=== PATIENT | female | born 1935 | race Caucasian/White ===

== ENCOUNTER → 2017-08-06 | Outpatient (CLI) | payer MEDICARE | END | disposition home or self-care (01) | LOC: KCIC US 08:24 | DX: I70.202 Unspecified atherosclerosis of native arteries of extremities, left leg (principal) | CPT/HCPCS: 93925 ==

== ENCOUNTER 2018-07-02 09:30 | Inpatient (IN) | payer MEDICARE, BC ==
[~2018-07-02] VITALS: Ht 165.1 cm; Wt 72.6 kg
[~2018-07-02 09:30] MED LIST: ASPI1CPM PO; DIGO125T PO; IRBE300T3 PO; LANS30CA66 PO
[2018-07-02 10:39] LABS: BASO % 1 % (0-3); EOS # 0.1 x10^3/uL (0.0-0.7); EOS % 1 % (0-3); HEMOGLOBIN 13.2 g/dL (12.0-15.5); LYMPH # 1.2 x10^3/uL (1.0-4.8); LYMPH % 19 % (24-48); MEAN CORPUSCULAR HEMOGLOBIN 30 pg (25-35); MEAN CORPUSCULAR HGB CONC 33 g/dL (31-37); MEAN CORPUSCULAR VOLUME 92 fL (79-100); MONO # 0.3 x10^3/uL (0.0-1.1); MONO % 4 % (0-9); NEUT # 4.8 x10^3uL (1.8-7.7); NEUT % 76 % (31-73); PLATELET COUNT 266 x10^3/uL (140-400); RED BLOOD COUNT 4.33 x10^6/uL (3.50-5.40); RED CELL DISTRIBUTION WIDTH 13.3 % (11.5-14.5); WHITE BLOOD COUNT 6.3 x10^3/uL (4.0-11.0)
[2018-07-02 10:42] LABS: CALCIUM 9.1 mg/dL (8.5-10.1); CREATININE 0.8 mg/dL (0.6-1.0); GFR 68.3; POTASSIUM 4.2 mmol/L (3.5-5.1)
[2018-07-02 10:48] LABS: ALBUMIN 3.4 g/dL (3.4-5.0); TOTAL BILIRUBIN 0.3 mg/dL (0.2-1.0); TOTAL PROTEIN 6.8 g/dL (6.4-8.2)
--- NOTE | 2018-07-02 11:15 | RAD ---
RS Compliance Statement: One or more of the following individualized dose reduction techniques were utilized for this examination: 1. Automated exposure control 2. Adjustment of the mA and/or kV according to patient size 3. Use of iterative reconstruction technique CT head without contrast 07/02/2018 10:23 AM INDICATION: Right arm weakness with history of stroke. COMPARISON: CT head July 24, 2014 TECHNIQUE: Multiple axial CT images of the head were obtained from skull base through the vertex without intravenous contrast. FINDINGS: Head: Ventricles, sulci and basal cisterns are mildly prominent compatible with mild joint cerebral volume loss. Focal fat is identified along the midline falx. Low-attenuation in the periventricular white matter is suggestive of chronic small vessel ischemic changes. There is a remote lacunar infarct in the left thalamus. There is no hydrocephalus. Clifford-white matter differentiation is normal. There is no acute intracranial hemorrhage. There is no mass, mass effect or midline shift. Posterior fossa is normal in appearance. Visualized portions of the orbits are normal. Paranasal sinuses are well aerated. Mastoid air cells are well aerated. Scalp and calvaria are normal. IMPRESSION: No acute intracranial hemorrhage. Mild generalized cerebral volume loss. Low-attenuation in the periventricular white matter is suggestive of chronic small vessel ischemic changes. Remote lacunar infarct in left thalamus. Electronically signed by: Heike Chen MD (07/02/2018 11:11 AM) [facility]
--- NOTE | 2018-07-02 11:28 | PHYS DOC ---
Past Medical History Past Medical History: CVA, GERD, Hypertension, Stroke Past Surgical History: No Surgical History Alcohol Use: None Drug Use: None Adult General Chief Complaint Chief Complaint: NEURO SYMPTOMS/DEFICITS HPI HPI 82-year-old female with a history of previous CVA with some residual right- sided weakness presents with new right-sided weakness. She states she woke up yesterday not feeling well. Today she states she noted that she's had some weakness in her right arm and difficulty determining how far her right foot was moving when she walked. She denies any headache. She denies any speech or vision problems. She has not any fever chills or sweats. She denies any nausea or vomiting. She states she is taking all of her medicines including Aggrenox as directed. She denies any chest pain palpitations, shortness of breath or dyspnea on exertion.[] Review of Systems Review of Systems Constitutional: Denies fever or chills [] Eyes: Denies change in visual acuity, redness, or eye pain [] HENT: Denies nasal congestion or sore throat [] Respiratory: Denies cough or shortness of breath [] Cardiovascular: No additional information not addressed in HPI [] GI: Denies abdominal pain, nausea, vomiting, bloody stools or diarrhea [] : Denies dysuria or hematuria [] Musculoskeletal: Denies back pain or joint pain [] Integument: Denies rash or skin lesions [] Neurologic: Per history of present illness[] Endocrine: Denies polyuria or polydipsia [] All other systems were reviewed and found to be within normal limits, except as documented in this note. Current Medications Current Medications Current Medications Medications (Trade) Dose Ordered Sig/Magali Start Time Stop Time Status Last Admin Dose Admin Ondansetron HCl (Zofran) 4 mg PRN Q8HRS PRN 07/02/18 12:15 07/03/18 12:14 Allergies Allergies Allergies Coded Allergies Type Severity Reaction Last Updated Verified Penicillins Allergy Intermediate 07/27/14 No Physical Exam Physical Exam Constitutional: Well developed, well nourished, no acute distress, non-toxic appearance. [] HENT: Normocephalic, atraumatic, bilateral external ears normal, oropharynx moist, no oral exudates, nose normal. [] Eyes: PERRLA, EOMI, conjunctiva normal, no discharge. [] Neck: Normal range of motion, no tenderness, supple, no stridor. [] Cardiovascular:Heart rate regular rhythm, no murmur [] Lungs & Thorax: Bilateral breath sounds clear to auscultation [] Abdomen: Bowel sounds normal, soft, no tenderness, no masses, no pulsatile masses. [] Skin: Warm, dry, no erythema, no rash. [] Back: No tenderness, no CVA tenderness. [] Extremities: No tenderness, no cyanosis, no clubbing, ROM intact, no edema. [] Neurologic: Alert and oriented 3, she has some decreased retort forker on the right and weakness in the right lower extremity is very minimal. [] Psychologic: Affect normal, judgement normal, mood normal. [] Current Patient Data Vital Signs Vital Signs Date Time Temp Pulse Resp B/P (MAP) Pulse Ox O2 Delivery O2 Flow Rate FiO2 07/02/18 09:52 98.6 58 18 207/88 (127) 98 98.6 Lab Values Laboratory Tests Test 07/02/18 10:20 07/02/18 10:58 07/02/18 11:15 White Blood Count 6.3 x10^3/uL (4.0-11.0) Red Blood Count 4.33 x10^6/uL (3.50-5.40) Hemoglobin 13.2 g/dL (12.0-15.5) Hematocrit 40.0 % (36.0-47.0) Mean Corpuscular Volume 92 fL (79-100) Mean Corpuscular Hemoglobin 30 pg (25-35) Mean Corpuscular Hemoglobin Concent 33 g/dL (31-37) Red Cell Distribution Width 13.3 % (11.5-14.5) Platelet Count 266 x10^3/uL (140-400) Neutrophils (%) (Auto) 76 % (31-73) H Lymphocytes (%) (Auto) 19 % (24-48) L Monocytes (%) (Auto) 4 % (0-9) Eosinophils (%) (Auto) 1 % (0-3) Basophils (%) (Auto) 1 % (0-3) Neutrophils # (Auto) 4.8 x10^3uL (1.8-7.7) Lymphocytes # (Auto) 1.2 x10^3/uL (1.0-4.8) Monocytes # (Auto) 0.3 x10^3/uL (0.0-1.1) Eosinophils # (Auto) 0.1 x10^3/uL (0.0-0.7) Basophils # (Auto) 0.0 x10^3/uL (0.0-0.2) Sodium Level 143 mmol/L (136-145) Potassium Level 4.2 mmol/L (3.5-5.1) Chloride Level 105 mmol/L (98-107) Carbon Dioxide Level 29 mmol/L (21-32) Anion Gap 9 (6-14) Blood Urea Nitrogen 12 mg/dL (7-20) Creatinine 0.8 mg/dL (0.6-1.0) Estimated GFR (Cockcroft-Gault) 68.3 BUN/Creatinine Ratio 15 (6-20) Glucose Level 110 mg/dL (70-99) H Calcium Level 9.1 mg/dL (8.5-10.1) Total Bilirubin 0.3 mg/dL (0.2-1.0) Aspartate Amino Transferase (AST) 15 U/L (15-37) Alanine Aminotransferase (ALT) 14 U/L (14-59) Alkaline Phosphatase 105 U/L (46-116) Total Protein 6.8 g/dL (6.4-8.2) Albumin 3.4 g/dL (3.4-5.0) Albumin/Globulin Ratio 1.0 (1.0-1.7) Prothrombin Time 13.0 SEC (11.7-14.0) Prothrombin Time INR 1.0 (0.8-1.1) Urine Collection Type Clean catch Urine Color Yellow Urine Clarity Clear Urine pH 6.5 Urine Specific [place] <=1.005 Urine Protein Negative mg/dL (NEG-TRACE) Urine Glucose (UA) Negative mg/dL (NEG) Urine Ketones (Stick) Negative mg/dL (NEG) Urine Blood Negative (NEG) Urine Nitrite Negative (NEG) Urine Bilirubin Negative (NEG) Urine Urobilinogen Dipstick 0.2 mg/dL (0.2 mg/dL) Urine Leukocyte Esterase Trace (NEG) Urine RBC Occ /HPF (0-2) Urine WBC 1-4 /HPF (0-4) Urine Squamous Epithelial Cells Mod /LPF Urine Bacteria Many /HPF (0-FEW) Urine Mucus Mod /LPF Laboratory Tests 3/27/19 10:20 Laboratory Tests 07/02/18 10:20 EKG EKG EKG: Sinus bradycardia with PAC right bundle rate of 50 utilization review coordinator appears more consistent with atrial fibrillation[] Radiology/Procedures Radiology/Procedures [] Impressions: REASON: right arm weakness PROCEDURE: CT HEAD WO CONTRAST PQRS Compliance Statement: One or more of the following individualized dose reduction techniques were utilized for this examination: 1. Automated exposure control 2. Adjustment of the mA and/or kV according to patient size 3. Use of iterative reconstruction technique CT head without contrast 07/02/2018 10:23 AM INDICATION: Right arm weakness with history of stroke. COMPARISON: CT head July 24, 2014 TECHNIQUE: Multiple axial CT images of the head were obtained from skull base through the vertex without intravenous contrast. FINDINGS: Head: Ventricles, sulci and basal cisterns are mildly prominent compatible with mild joint cerebral volume loss. Focal fat is identified along the midline falx. Low-attenuation in the periventricular white matter is suggestive of chronic small vessel ischemic changes. There is a remote lacunar infarct in the left thalamus. There is no hydrocephalus. Clifford-white matter differentiation is normal. There is no acute intracranial hemorrhage. There is no mass, mass effect or midline shift. Posterior fossa is normal in appearance. Visualized portions of the orbits are normal. Paranasal sinuses are well aerated. Mastoid air cells are well aerated. Scalp and calvaria are normal. IMPRESSION: No acute intracranial hemorrhage. Mild generalized cerebral volume loss. Low-attenuation in the periventricular white matter is suggestive of chronic small vessel ischemic changes. Remote lacunar infarct in left thalamus. Course & Med Decision Making Course & Med Decision Making Pertinent Labs and Imaging studies reviewed. (See chart for details) [ED course: Evaluation reveals 82-year-old female who started having symptoms 24 hours ago. It sounds like they've waxed and waned throughout the day. This morning they may have been a little bit worse. Certainly, it does not appear that she's had an acute CVA within the last 4 hours. Her symptoms are more consistent with TIA. She is not a candidate for TPA at this time] Dragon Disclaimer Dragon Disclaimer This electronic medical record was generated, in whole or in part, using a voice recognition dictation system. Departure Departure Impression: Primary Impression: CVA (cerebral vascular accident) Disposition: 01 HOME, SELF-CARE Admitting Physician: Yanira Martini Condition: STABLE Referrals: YANIRA MARTINI MD (PCP) Problem Qualifiers Primary Impression: CVA (cerebral vascular accident) CVA mechanism: unspecified Qualified Codes: I63.9 - Cerebral infarction, unspecified HAMILTON LUONG DO Jul 02, 2018 11:28
[2018-07-02 11:30] LABS: BILIRUBIN,URINE NEGATIVE (NEG); CLARITY,URINE CLEAR; COLOR,URINE YELLOW; NITRITE,URINE NEGATIVE (NEG); PH,URINE 6.5; PROTEIN,URINE NEGATIVE (NEG-TRACE); UROBILINOGEN,URINE 0.2 mg/dL (0.2 mg/dL)
--- NOTE | 2018-07-02 11:44 | EKG ---
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
[2018-07-02 11:46] LABS: SQUAMOUS EPITHELIAL CELL,UR MOD /LPF
[2018-07-02 11:47] LABS: BACTERIA,URINE MANY /HPF (0-FEW); RBC,URINE OCC /HPF (0-2)
[2018-07-02] MEDS ORDERED: ONDANSETRON PF 4 MG/2 ML VIAL. IV PRN (12:15)
[2018-07-02 14:00] VITALS: BP 127/67
--- NOTE | 2018-07-02 14:44 | NUR ---
This RN interpreted telemetry strip printed at 1444 as 2nd degree AV block type one, received orders for cardiology consult and 12 lead EKG. Spoke with PABLO Rdz, who stated that the patient was in a junctional rhythm, but will get an Echo to r/o heart disease and a digoxin level. Pt is asymptomatic. Will continue to monitor.
--- NOTE | 2018-07-02 15:08 | EKG ---
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
[2018-07-02] MEDS: LOSARTAN POTASSIUM 50 MG TABLET. PO SCH (15:11)
--- NOTE | 2018-07-02 15:33 | PDOC2 ---
CARDIAC CONSULT DATE OF CONSULT Date of Consult DATE: 07/02/18 TIME: 15:19 REASON FOR CONSULT Reason for Consult: SB vs AFIB REFERRING PHYSICIAN Referring Physician: Appl SOURCE Source: Chart review, Patient HISTORY OF PRESENT ILLNESS HISTORY OF PRESENT ILLNESS This is a pleasant 82 yo female admitted for complains of right arm weakness. She thought that she was having another stroke. Reports that this occurred around 0730 today, feeling like her right arm was weaker and has some numbness and still has it. No facial drooping, visual or auditory disturbances but daughter explained that she had some slurred speech. She has had 2 strokes in the past but no hx of AFIB per daughter and pt and there is no noted indication for digoxin use. This consult is for bradycardia which is asymptomatic. Denies any chest pain, SOA, palpitations and she has not been having any dizziness or passing out episodes. No hx of of cervical issues or recent injuries or falls. No hx of arrhythmia or CAD. PAST MEDICAL HISTORY Cardiovascular: HTN Pulmonary: No pertinent hx CENTRAL NERVOUS SYSTEM: CVA GI: GERD Heme/Onc: No pertinent hx Hepatobiliary: No pertinent hx Psych: No pertinent hx Musculoskeletal: Osteoarthritis Rheumatologic: No pertinent hx Infectious disease: No pertinent hx ENT: No pertinent hx Renal/: No pertinent hx Endocrine: No pertinent hx Dermatology: No pertinent hx PAST SURGICAL HISTORY Past Surgical History: Cataract Removal FAMILY HISTORY Family History: Diabetes (sister), Heart Disease (mother and brother) SOCIAL HISTORY Smoke: No ALCOHOL: none Drugs: None Lives: with Family ALLERGIES ALLERGIES: Coded Allergies: Penicillins (Unverified Allergy, Intermediate, 07/27/14) ROS Review of System 14 point ROS evaluated with pertinent positives noted per HPI PHYSICAL EXAM General: Alert, Oriented X3, Cooperative, No acute distress HEENT: Atraumatic, Mucous membr. moist/pink Lungs: Clear to auscultation, Normal air movement Heart: Regular rate (SR), Normal S1, Normal S2, Other (2/6 systolic mumrur to LLS border) Abdomen: Soft, No tenderness Extremities: No cyanosis, No edema Skin: No breakdown, No significant lesion Neuro: Normal speech, Sensation intact Psych/Mental Status: Mental status NL, Mood NL MUSCULOSKELETAL: Osteoarthritic changes both hands, Other (left arm weakness) VITALS VITALS Vital Signs Date Time Temp Pulse Resp B/P (MAP) Pulse Ox O2 Delivery O2 Flow Rate FiO2 07/02/18 14:25 Room Air 07/02/18 14:00 97.7 50 16 127/67 (87) 98 97.7 LABS Lab: Laboratory Tests Test 07/02/18 10:20 07/02/18 10:58 07/02/18 11:15 White Blood Count 6.3 x10^3/uL (4.0-11.0) Red Blood Count 4.33 x10^6/uL (3.50-5.40) Hemoglobin 13.2 g/dL (12.0-15.5) Hematocrit 40.0 % (36.0-47.0) Mean Corpuscular Volume 92 fL (79-100) Mean Corpuscular Hemoglobin 30 pg (25-35) Mean Corpuscular Hemoglobin Concent 33 g/dL (31-37) Red Cell Distribution Width 13.3 % (11.5-14.5) Platelet Count 266 x10^3/uL (140-400) Neutrophils (%) (Auto) 76 % (31-73) Lymphocytes (%) (Auto) 19 % (24-48) Monocytes (%) (Auto) 4 % (0-9) Eosinophils (%) (Auto) 1 % (0-3) Basophils (%) (Auto) 1 % (0-3) Neutrophils # (Auto) 4.8 x10^3uL (1.8-7.7) Lymphocytes # (Auto) 1.2 x10^3/uL (1.0-4.8) Monocytes # (Auto) 0.3 x10^3/uL (0.0-1.1) Eosinophils # (Auto) 0.1 x10^3/uL (0.0-0.7) Basophils # (Auto) 0.0 x10^3/uL (0.0-0.2) Sodium Level 143 mmol/L (136-145) Potassium Level 4.2 mmol/L (3.5-5.1) Chloride Level 105 mmol/L (98-107) Carbon Dioxide Level 29 mmol/L (21-32) Anion Gap 9 (6-14) Blood Urea Nitrogen 12 mg/dL (7-20) Creatinine 0.8 mg/dL (0.6-1.0) Estimated GFR (Cockcroft-Gault) 68.3 BUN/Creatinine Ratio 15 (6-20) Glucose Level 110 mg/dL (70-99) Calcium Level 9.1 mg/dL (8.5-10.1) Total Bilirubin 0.3 mg/dL (0.2-1.0) Aspartate Amino Transf (AST/SGOT) 15 U/L (15-37) Alanine Aminotransferase (ALT/SGPT) 14 U/L (14-59) Alkaline Phosphatase 105 U/L (46-116) Total Protein 6.8 g/dL (6.4-8.2) Albumin 3.4 g/dL (3.4-5.0) Albumin/Globulin Ratio 1.0 (1.0-1.7) Prothrombin Time 13.0 SEC (11.7-14.0) Prothromb Time International Ratio 1.0 (0.8-1.1) Urine Collection Type Clean catch Urine Color Yellow Urine Clarity Clear Urine pH 6.5 Urine Specific [place] <=1.005 Urine Protein Negative mg/dL (NEG-TRACE) Urine Glucose (UA) Negative mg/dL (NEG) Urine Ketones (Stick) Negative mg/dL (NEG) Urine Blood Negative (NEG) Urine Nitrite Negative (NEG) Urine Bilirubin Negative (NEG) Urine Urobilinogen Dipstick 0.2 mg/dL (0.2 mg/dL) Urine Leukocyte Esterase Trace (NEG) Urine RBC Occ /HPF (0-2) Urine WBC 1-4 /HPF (0-4) Urine Squamous Epithelial Cells Mod /LPF Urine Bacteria Many /HPF (0-FEW) Urine Mucus Mod /LPF ECHOCARDIOGRAM ECHOCARDIOGRAM <Conclusion> The left ventricular systolic function is normal. The Ejection Fraction is estimated at 55-60%. There is mild concentric left ventricular hypertrophy. The left atrium is mildly dilated. Doppler and Color Flow revealed trace aortic regurgitation. Doppler and Color-flow revealed trace mitral regurgitation. Doppler and Color Flow revealed trace tricuspid regurgitation. Injection of bubbles documented no interatrial shunt. DATE: 07/26/14 1521 ASSESSMENT/PLAN ASSESSMENT/PLAN 1. Possible CVA: RA weakness/numbness/dysarthria reported. neurology following. MRI pending 2. Asymptomatic bradycardia: Noted with HR in the 40-50s no pauses. 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 3. HTN: initially SBP at 207 but now controlled 4. Hx of CVA Recommendations 1. Aggrenox per neurology 2. Will check dig level, DC digoxin. So far no definitive indication for it. 3. TTE, TSH, lipids. Statin per level. 4. Continue home BP regimen. Avoid AV fay blocking agent. 5. outpt event monitor to be considered. MIRANDA LOPEZ APRN Jul 02, 2018 15:33
[2018-07-02 16:31] LABS: DIG 0.7 ng/mL (0.9-2.0)
[2018-07-02 19:42] VITALS: BP 184/74
--- NOTE | 2018-07-02 19:46 | PDOC2 ---
NEUROLOGY CONSULT Date of Admission Date of Admission DATE: 07/02/18 TIME: 19:32 Reason for Consult Reason for Consult: IMPRESSION: Increased weakness in right side. Slurred speech. Metabolic encephalopathy. Hypertensive urgency, SBP 207 mmHg. HTN, not well controlled. 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 Vit B12 insufficiency. RECOMMENDATIONS/PLAN: Continue Aggrenox daily. Continue Zocor HS. Brain MRI w/o contrast. Vit B12 1 mg IM daily, change to PO when discharge. Lab: see orders. Further evaluation after MRI. OT/PT. HISTORY OF THE PRESENT ILLNESS: This is an 82-y-old female patient who was admitted due to increased weakness in her right side right. She thought that she was having another stroke. Reports that this occurred around 07:30 today, feeling like her right arm was weaker and has some numbness and still has it. No facial drooping, visual or auditory disturbances but daughter explained that she had some slurred speech. She has had 2 strokes in the past with mild right side weakness. PAST MEDICAL HISTORY Cardiovascular: HTN Pulmonary: No pertinent hx CENTRAL NERVOUS SYSTEM: CVA GI: GERD Heme/Onc: No pertinent hx Hepatobiliary: No pertinent hx Psych: No pertinent hx Musculoskeletal: Osteoarthritis Rheumatologic: No pertinent hx Infectious disease: No pertinent hx ENT: No pertinent hx Renal/: No pertinent hx Endocrine: No pertinent hx Dermatology: No pertinent hx PAST SURGICAL HISTORY Cataract Removal FAMILY HISTORY Diabetes (sister), Heart Disease (mother and brother) SOCIAL HISTORY Smoke: No ALCOHOL: none Drugs: None Lives: with Family ALLERGIES Coded Allergies: Penicillins (Unverified Allergy, Intermediate, 07/27/14) MEDICATIONS: Refer to [facility] REVIEW OF SYSTEMS: Constitutional: No malnutrition, weight loss, cachexia. Head: No recent traumatic brain or head injury. Skin: No edema, or rash. Ear: No infection. Eyes: No vision loss or color blindness. Nose: No bleeding or purulent discharges. Hearing: Hearing decrease. Neck: No injury. Breast: No history of cancer, masses,or discharges. Cardiac: HTN, HLD. Pulmonary: No COPD. GI: No GI ulcer, GI bleeding. Urinary/genital: UTI. Endocrinologic: No cousin face, craniofacial dysmorphism, polydactyly. Skeletomuscular: No muscular atrophy, deformity. Neurological: see HP. Psychiatric: Denies drug use/abuse. Otherwise, not [id number] review of systems. PHYSICAL EXAMINATION: General appearance is in subacute distress. HEENT: Normocephalic and nontraumatic. Eyes, nose, ears, and throat are unremarkable. Neck is supple. No lymphadenopathy. No bruits are heard over the carotid artery. No crepitus. Cardiovascular: S1, S2, regular rate and rhythm. Pulmonary: Clear to auscultation bilaterally. Abdomen: Bowel sounds are positive. Abdomen is soft, nontender, and nondistended. Extremities: No rash, lesions, or edema. No restriction of range of motion NEUROLOGICAL EXAMINATION: Alert Oriented partially to time, place and person. PERRL. EOMI. CN: no focal findings. Muscle tone: within normal. Muscle strength: 4+ right side. 5 left side. DTR: 2 Plantar reflex: Flexor response bilaterally Gait: not examined in bed. Sensory exam: no abnormal findings. No cerebellar signs elicited. F-T-N test accurate. Current Medications Current Medications Current Medications Ondansetron HCl (Zofran) 4 mg PRN Q8HRS PRN IV NAUSEA/VOMITING; Start 07/02/18 at 12:15; Stop 07/03/18 at 12:14 Digoxin (Lanoxin) 125 mcg DAILY PO ; Start 07/03/18 at 09:00; Stop 07/03/18 at 09:00; Status DC Dipyridamole/ Aspirin (Aggrenox) 1 cap BID PO ; Start 07/02/18 at 21:00 Losartan Potassium (Cozaar) 50 mg DAILY PO ; Start 07/02/18 at 15:30 Cyanocobalamin (Vitamin B-12) 1,000 mcg DAILY IM ; Start 07/02/18 at 19:00 Active Scripts Active Reported Digoxin 125 Mcg Tablet 125 Mcg PO DAILY Irbesartan 300 Mg Tablet 150 Mg PO DAILY Aggrenox 25 Mg-200 Mg Capsule (Aspirin/Dipyridamole) 1 Each Cpmp.12hr 1 Each PO BID Allergies Allergies: Allergies Coded Allergies Type Severity Reaction Last Updated Verified Penicillins Allergy Intermediate 07/27/14 No ROS Review of System The patient denies any associated fevers, chills, headache, ear pain, rhinorrhea , sore throat, stiff neck, productive cough, chest pain, shortness of breath, back or flank pain, abdominal pain, nausea, vomiting, diarrhea, constipation, dysuria, rash, numbness, weakness, tingling, incontinence, difficulty ambulating, or diaphoresis. Physical Exam Physical Exam General: Well developed, well nourished, no acute distress, well appearing HEENT: Pupils equally round and reactive to light, EOMI, no discharge, normal conjunctiva Neck: Supple, no nuchal rigidity, no JVD, trachea midline, no tenderness Cardiac: RRR, no murmurs, no gallops, no rubs Chest/Lungs: CTAB, no wheeze, no rhonchi, no crackles Abdomen: soft, non-distended, no guarding, no peritoneal signs, non-tender Back: No tenderness Extremities: no edema, pulses intact, non-tender,capillary refill <3 sec bilateral upper and lower extremities, Neuro: Alert and oriented x 4, no focal deficits, normal speech Vitals Vitals: Vital Signs Date Time Temp Pulse Resp B/P (MAP) Pulse Ox O2 Delivery O2 Flow Rate FiO2 07/02/18 14:25 Room Air 07/02/18 14:00 97.7 50 16 127/67 (87) 98 97.7 Labs Labs Laboratory Tests Test 07/02/18 10:20 07/02/18 10:58 07/02/18 11:15 White Blood Count 6.3 x10^3/uL (4.0-11.0) Red Blood Count 4.33 x10^6/uL (3.50-5.40) Hemoglobin 13.2 g/dL (12.0-15.5) Hematocrit 40.0 % (36.0-47.0) Mean Corpuscular Volume 92 fL (79-100) Mean Corpuscular Hemoglobin 30 pg (25-35) Mean Corpuscular Hemoglobin Concent 33 g/dL (31-37) Red Cell Distribution Width 13.3 % (11.5-14.5) Platelet Count 266 x10^3/uL (140-400) Neutrophils (%) (Auto) 76 % (31-73) Lymphocytes (%) (Auto) 19 % (24-48) Monocytes (%) (Auto) 4 % (0-9) Eosinophils (%) (Auto) 1 % (0-3) Basophils (%) (Auto) 1 % (0-3) Neutrophils # (Auto) 4.8 x10^3uL (1.8-7.7) Lymphocytes # (Auto) 1.2 x10^3/uL (1.0-4.8) Monocytes # (Auto) 0.3 x10^3/uL (0.0-1.1) Eosinophils # (Auto) 0.1 x10^3/uL (0.0-0.7) Basophils # (Auto) 0.0 x10^3/uL (0.0-0.2) Sodium Level 143 mmol/L (136-145) Potassium Level 4.2 mmol/L (3.5-5.1) Chloride Level 105 mmol/L (98-107) Carbon Dioxide Level 29 mmol/L (21-32) Anion Gap 9 (6-14) Blood Urea Nitrogen 12 mg/dL (7-20) Creatinine 0.8 mg/dL (0.6-1.0) Estimated GFR (Cockcroft-Gault) 68.3 BUN/Creatinine Ratio 15 (6-20) Glucose Level 110 mg/dL (70-99) Calcium Level 9.1 mg/dL (8.5-10.1) Total Bilirubin 0.3 mg/dL (0.2-1.0) Aspartate Amino Transf (AST/SGOT) 15 U/L (15-37) Alanine Aminotransferase (ALT/SGPT) 14 U/L (14-59) Alkaline Phosphatase 105 U/L (46-116) Creatine Kinase 39 U/L (26-192) Total Protein 6.8 g/dL (6.4-8.2) Albumin 3.4 g/dL (3.4-5.0) Albumin/Globulin Ratio 1.0 (1.0-1.7) Vitamin B12 Level 234 pg/mL (247-911) Thyroid Stimulating Hormone (TSH) 1.332 uIU/mL (0.358-3.74) Prothrombin Time 13.0 SEC (11.7-14.0) Prothromb Time International Ratio 1.0 (0.8-1.1) Digoxin Level 0.7 ng/mL (0.9-2.0) Digoxin Last Dose Date 07/02/18 Digoxin Last Dose Time 0900 Urine Collection Type Clean catch Urine Color Yellow Urine Clarity Clear Urine pH 6.5 Urine Specific [place] <=1.005 Urine Protein Negative mg/dL (NEG-TRACE) Urine Glucose (UA) Negative mg/dL (NEG) Urine Ketones (Stick) Negative mg/dL (NEG) Urine Blood Negative (NEG) Urine Nitrite Negative (NEG) Urine Bilirubin Negative (NEG) Urine Urobilinogen Dipstick 0.2 mg/dL (0.2 mg/dL) Urine Leukocyte Esterase Trace (NEG) Urine RBC Occ /HPF (0-2) Urine WBC 1-4 /HPF (0-4) Urine Squamous Epithelial Cells Mod /LPF Urine Bacteria Many /HPF (0-FEW) Urine Mucus Mod /LPF Laboratory Tests Test 07/02/18 10:20 07/02/18 10:58 07/02/18 11:15 White Blood Count 6.3 x10^3/uL (4.0-11.0) Red Blood Count 4.33 x10^6/uL (3.50-5.40) Hemoglobin 13.2 g/dL (12.0-15.5) Hematocrit 40.0 % (36.0-47.0) Mean Corpuscular Volume 92 fL (79-100) Mean Corpuscular Hemoglobin 30 pg (25-35) Mean Corpuscular Hemoglobin Concent 33 g/dL (31-37) Red Cell Distribution Width 13.3 % (11.5-14.5) Platelet Count 266 x10^3/uL (140-400) Neutrophils (%) (Auto) 76 % (31-73) Lymphocytes (%) (Auto) 19 % (24-48) Monocytes (%) (Auto) 4 % (0-9) Eosinophils (%) (Auto) 1 % (0-3) Basophils (%) (Auto) 1 % (0-3) Neutrophils # (Auto) 4.8 x10^3uL (1.8-7.7) Lymphocytes # (Auto) 1.2 x10^3/uL (1.0-4.8) Monocytes # (Auto) 0.3 x10^3/uL (0.0-1.1) Eosinophils # (Auto) 0.1 x10^3/uL (0.0-0.7) Basophils # (Auto) 0.0 x10^3/uL (0.0-0.2) Sodium Level 143 mmol/L (136-145) Potassium Level 4.2 mmol/L (3.5-5.1) Chloride Level 105 mmol/L (98-107) Carbon Dioxide Level 29 mmol/L (21-32) Anion Gap 9 (6-14) Blood Urea Nitrogen 12 mg/dL (7-20) Creatinine 0.8 mg/dL (0.6-1.0) Estimated GFR (Cockcroft-Gault) 68.3 BUN/Creatinine Ratio 15 (6-20) Glucose Level 110 mg/dL (70-99) Calcium Level 9.1 mg/dL (8.5-10.1) Total Bilirubin 0.3 mg/dL (0.2-1.0) Aspartate Amino Transf (AST/SGOT) 15 U/L (15-37) Alanine Aminotransferase (ALT/SGPT) 14 U/L (14-59) Alkaline Phosphatase 105 U/L (46-116) Creatine Kinase 39 U/L (26-192) Total Protein 6.8 g/dL (6.4-8.2) Albumin 3.4 g/dL (3.4-5.0) Albumin/Globulin Ratio 1.0 (1.0-1.7) Vitamin B12 Level 234 pg/mL (247-911) Thyroid Stimulating Hormone (TSH) 1.332 uIU/mL (0.358-3.74) Prothrombin Time 13.0 SEC (11.7-14.0) Prothromb Time International Ratio 1.0 (0.8-1.1) Digoxin Level 0.7 ng/mL (0.9-2.0) Digoxin Last Dose Date 07/02/18 Digoxin Last Dose Time 0900 Urine Collection Type Clean catch Urine Color Yellow Urine Clarity Clear Urine pH 6.5 Urine Specific [place] <=1.005 Urine Protein Negative mg/dL (NEG-TRACE) Urine Glucose (UA) Negative mg/dL (NEG) Urine Ketones (Stick) Negative mg/dL (NEG) Urine Blood Negative (NEG) Urine Nitrite Negative (NEG) Urine Bilirubin Negative (NEG) Urine Urobilinogen Dipstick 0.2 mg/dL (0.2 mg/dL) Urine Leukocyte Esterase Trace (NEG) Urine RBC Occ /HPF (0-2) Urine WBC 1-4 /HPF (0-4) Urine Squamous Epithelial Cells Mod /LPF Urine Bacteria Many /HPF (0-FEW) Urine Mucus Mod /LPF LYNN LOUISE MD Jul 02, 2018 19:46
[2018-07-02] MEDS: ASPIRIN/DIPYRIDAMOLE 200/25MG CAP.ER.12H. PO SCH (21:03)
[2018-07-02] MEDS: CYANOCOBALAMIN (VITAMIN B-12) 1,000 MCG/ML VIAL IM SCH (21:04)
[2018-07-02 23:37] VITALS: BP 174/83
--- NOTE | 2018-07-03 01:45 | NUR ---
Patient having asymptomatic pauses (1 to 3 seconds) on registered nurse cardiac telemetry. Dr. Sadler notified and he will address in am.
[2018-07-03 03:29] VITALS: BP 161/61
[2018-07-03 06:12] LABS: CHOLESTEROL/HDL RATIO 3.3
[2018-07-03 06:55] VITALS: BP 151/64
--- NOTE | 2018-07-03 08:28 | NUR ---
SW following pt for anticipated dc needs. Chart reviewed. Pt lives at home with family. PT/OT/ST ordered. SW will await for PT/OT recommendation to assess dc needs. Will continue to follow.
--- NOTE | 2018-07-03 08:34 | PDOC ---
GENERAL General: see dictated H&P. VITAL SIGNS Vital Signs: Vital Signs Date Time Temp Pulse Resp B/P (MAP) Pulse Ox O2 Delivery O2 Flow Rate FiO2 07/03/18 06:55 98.2 60 18 151/64 (93) 96 Room Air 98.2 I & O I & O Intake and Output 07/03/18 06:59 Intake Total 690 ml Balance 690 ml Intake Oral 690 ml # Voids 1 ALLERGIES Allergies: Allergies Coded Allergies Type Severity Reaction Last Updated Verified Penicillins Allergy Intermediate 07/27/14 No MEDS Medications: Current Medications Medications (Trade) Dose Ordered Sig/Magali Start Time Stop Time Status Last Admin Dose Admin Atorvastatin Calcium (Lipitor) 10 mg QHS 07/03/18 21:00 Cyanocobalamin (Vitamin B-12) 1,000 mcg DAILY 07/02/18 19:00 07/02/18 21:04 1,000 MCG Digoxin (Lanoxin) 125 mcg DAILY 07/03/18 09:00 07/03/18 09:00 DC Dipyridamole/ Aspirin (Aggrenox) 1 cap BID 07/02/18 21:00 07/02/18 21:03 1 CAP Losartan Potassium (Cozaar) 50 mg DAILY 07/02/18 15:30 Ondansetron HCl (Zofran) 4 mg PRN Q8HRS PRN 07/02/18 12:15 07/03/18 12:14 LAB Lab: Laboratory Tests Test 07/02/18 10:20 07/02/18 10:58 07/02/18 11:15 07/03/18 04:00 White Blood Count 6.3 x10^3/uL (4.0-11.0) Red Blood Count 4.33 x10^6/uL (3.50-5.40) Hemoglobin 13.2 g/dL (12.0-15.5) Hematocrit 40.0 % (36.0-47.0) Mean Corpuscular Volume 92 fL (79-100) Mean Corpuscular Hemoglobin 30 pg (25-35) Mean Corpuscular Hemoglobin Concent 33 g/dL (31-37) Red Cell Distribution Width 13.3 % (11.5-14.5) Platelet Count 266 x10^3/uL (140-400) Neutrophils (%) (Auto) 76 % (31-73) Lymphocytes (%) (Auto) 19 % (24-48) Monocytes (%) (Auto) 4 % (0-9) Eosinophils (%) (Auto) 1 % (0-3) Basophils (%) (Auto) 1 % (0-3) Neutrophils # (Auto) 4.8 x10^3uL (1.8-7.7) Lymphocytes # (Auto) 1.2 x10^3/uL (1.0-4.8) Monocytes # (Auto) 0.3 x10^3/uL (0.0-1.1) Eosinophils # (Auto) 0.1 x10^3/uL (0.0-0.7) Basophils # (Auto) 0.0 x10^3/uL (0.0-0.2) Sodium Level 143 mmol/L (136-145) Potassium Level 4.2 mmol/L (3.5-5.1) Chloride Level 105 mmol/L (98-107) Carbon Dioxide Level 29 mmol/L (21-32) Anion Gap 9 (6-14) Blood Urea Nitrogen 12 mg/dL (7-20) Creatinine 0.8 mg/dL (0.6-1.0) Estimated GFR (Cockcroft-Gault) 68.3 BUN/Creatinine Ratio 15 (6-20) Glucose Level 110 mg/dL (70-99) Calcium Level 9.1 mg/dL (8.5-10.1) Total Bilirubin 0.3 mg/dL (0.2-1.0) Aspartate Amino Transf (AST/SGOT) 15 U/L (15-37) Alanine Aminotransferase (ALT/SGPT) 14 U/L (14-59) Alkaline Phosphatase 105 U/L (46-116) Creatine Kinase 39 U/L (26-192) Total Protein 6.8 g/dL (6.4-8.2) Albumin 3.4 g/dL (3.4-5.0) Albumin/Globulin Ratio 1.0 (1.0-1.7) Vitamin B12 Level 234 pg/mL (247-911) Thyroid Stimulating Hormone (TSH) 1.332 uIU/mL (0.358-3.74) Prothrombin Time 13.0 SEC (11.7-14.0) Prothromb Time International Ratio 1.0 (0.8-1.1) Digoxin Level 0.7 ng/mL (0.9-2.0) Digoxin Last Dose Date 07/02/18 Digoxin Last Dose Time 0900 Urine Collection Type Clean catch Urine Color Yellow Urine Clarity Clear Urine pH 6.5 Urine Specific [place] <=1.005 Urine Protein Negative mg/dL (NEG-TRACE) Urine Glucose (UA) Negative mg/dL (NEG) Urine Ketones (Stick) Negative mg/dL (NEG) Urine Blood Negative (NEG) Urine Nitrite Negative (NEG) Urine Bilirubin Negative (NEG) Urine Urobilinogen Dipstick 0.2 mg/dL (0.2 mg/dL) Urine Leukocyte Esterase Trace (NEG) Urine RBC Occ /HPF (0-2) Urine WBC 1-4 /HPF (0-4) Urine Squamous Epithelial Cells Mod /LPF Urine Bacteria Many /HPF (0-FEW) Urine Mucus Mod /LPF Triglycerides Level 71 mg/dL (0-150) Cholesterol Level 161 mg/dL (0-200) LDL Cholesterol, Calculated 98 mg/dL (0-100) VLDL Cholesterol, Calculated 14 mg/dL (0-40) Non-HDL Cholesterol Calculated 112 mg/dL (0-129) HDL Cholesterol 49 mg/dL (40-60) Cholesterol/HDL Ratio 3.3 YANIRA MARTINI MD Jul 03, 2018 08:34
[2018-07-03] MEDS ORDERED: DIGOXIN 125 MCG TABLET. PO SCH (09:00)
[2018-07-03] MEDS: LOSARTAN POTASSIUM 50 MG TABLET. PO SCH (10:16)
[2018-07-03] MEDS: ASPIRIN/DIPYRIDAMOLE 200/25MG CAP.ER.12H. PO SCH (10:17)
[2018-07-03] MEDS: CYANOCOBALAMIN (VITAMIN B-12) 1,000 MCG/ML VIAL IM SCH (10:17)
--- NOTE | 2018-07-03 10:22 | RAD ---
EXAMINATION: Magnetic resonance imaging (MRI) of the brain and brainstem without contrast 07/03/2018 5:00 AM HISTORY: Right hand weakness for one day. TECHNIQUE: Multiplanar multi-weighted MRI of the brain and brainstem was performed without intravenous contrast using the general brain protocol. COMPARISON: CT head July 02, 2018. FINDINGS: The scalp and calvarium are normal. The superior sagittal sinus demonstrates normal venous flow. The corpus callosum is normal in shape and signal intensity. The posterior fossa is unremarkable. The pituitary and sella are normal. The brainstem and craniocervical junction are unremarkable. There is a 7 mm area of diffusion signal hyperintensity involving the left carrasco radiata and posterior limb left internal capsule suggestive of a lacunar infarct. Findings correspond with a low signal on ADC maps. There is corresponding T2/FLAIR signal hyperintensity suggestive of cytotoxic edema. There is a remote lacunar infarct involving the left thalamus and left basal ganglia. There are T2/FLAIR signal hyperintense foci in the periventricular and subcortical white matter most suggestive of mild chronic small vessel ischemic changes. The susceptibility weighted sequences reveal no evidence of acute or chronic hemorrhage. The ventricles are normal in size and position without evidence of hydrocephalus. There is mild generalized volume loss. The paranasal sinuses are normal. The visualized portions of the mastoids are unremarkable. The orbits appear normal with exception of bilateral lens replacement. Normal flow voids are demonstrated in the carotid arteries and basilar artery. IMPRESSION: There is an acute lacunar infarct involving the left carrasco radiata with extension to the posterior limb left internal capsule. There is associated cytotoxic edema without microhemorrhage or mass effect. There are T2/FLAIR signal hyperintense foci in the periventricular and subcortical white matter most suggestive of mild chronic small vessel ischemic changes. Mild joint cerebral volume loss. There is a remote lacunar infarct identified in the left thalamus and left basal ganglia. FOR INTERNAL CODING PURPOSES Critical result: Findings discussed with patient's nurse, Laura, at 07/03/2018 10:16 AM. RESULT CODE: (C) Electronically signed by: Heike Chen MD (07/03/2018 10:19 AM) [id number]
[2018-07-03 10:23] VITALS: BP 184/73
--- NOTE | 2018-07-03 11:00 | CARD ---
MR#: [id number] Date of Study: 07/03/2018 Ordering Physician: MIRANDA LOPEZ, Referring Physician: YANIRA MARTINI Tech: Leonor Newton APPROVED REPORT EXAM: Two-dimensional and M-mode echocardiogram with Doppler and color Doppler. Other Information Quality : AverageHR: 66bpm INDICATION CVA/TIA 2D DIMENSIONS RVDd2.8 (2.9-3.5cm)Left Atrium(2D)4.2 (1.6-4.0cm) IVSd1.3 (0.7-1.1cm)Aortic Root(2D)2.7 (2.0-3.7cm) LVDd5.6 (3.9-5.9cm)LVOT Diameter2.3 (1.8-2.4cm) PWd1.2 (0.7-1.1cm)LVDs3.9 (2.5-4.0cm) FS (%) 29.8 %SV86.4 ml LVEF(%)56.3 (>50%) Aortic Valve AoV Peak Shaheen.143.0cm/sAoV VTI30.1cm AO Peak GR.8.2mmHgLVOT Peak Shaheen.109.4cm/s LVOT VTI 27.56cmAO Mean GR.4mmHg GUANACO (VMAX)2.98as1WTZ (VTI)3.93cm2 Mitral Valve MV E Eqvbjvdz71.0cm/sMV DECEL LNFV419dq MV A Lzbumhtb09.1cm/sMV TED810pe E/A Ratio0.7MVA (PHT)1.91cm2 TDI E/Lateral E'10.4E/Medial E'7.5 Pulmonary Valve PV Peak Uihcrbac542.4cm/sPV Peak Grad.6mmHg Tricuspid Valve TR P. Vydgldfz077yl/sRAP YEYPVLWU0xxKm TR Peak Gr.51otQdBRVX75uqKx Pulmonary Vein S1 Vvvwxakn23.3cm/sD2 Kamheoos18.2cm/s PVa nqrejgmg55jpnf LEFT VENTRICLE The left ventricle is normal size. There is moderate concentric left ventricular hypertrophy. The lef t ventricular systolic function is normal and the ejection fraction is within normal range. The Eject ion Fraction is >55%. There is normal LV segmental wall motion. Transmitral Doppler flow pattern is G rade I-abnormal relaxation pattern. RIGHT VENTRICLE The right ventricle is normal size. There is normal right ventricular wall thickness. The right ventr icular systolic function is normal. ATRIA The left atrium size is normal. The right atrium size is normal. The interatrial septum is intact wit h no evidence for an atrial septal defect or patent foramen ovale as noted on 2-D or Doppler imaging. Agitated saline study did not reveal any evidence of right to left shunting AORTIC VALVE The aortic valve is normal in structure and function. Doppler and Color Flow revealed no significant aortic regurgitation. There is no significant aortic valvular stenosis. MITRAL VALVE The mitral valve is normal in structure and function. There is no evidence of mitral valve prolapse. There is no mitral valve stenosis. Doppler and Color-flow revealed trace mitral regurgitation. TRICUSPID VALVE The tricuspid valve is not well visualized. Doppler and Color Flow revealed trace tricuspid regurgita tion. There is no tricuspid valve stenosis. PULMONIC VALVE Doppler and Color Flow revealed trace pulmonic valvular regurgitation. There is no pulmonic valvular stenosis. GREAT VESSELS The aortic root is normal in size. The IVC is normal in size and collapses >50% with inspiration. PERICARDIAL EFFUSION There is no evidence of significant pericardial effusion. Critical Notification Critical Value: No <Conclusion> There is moderate concentric left ventricular hypertrophy. The left ventricular systolic function is normal and the ejection fraction is within normal range. Th e Ejection Fraction is >55%. There is normal LV segmental wall motion. The interatrial septum is intact with no evidence for an atrial septal defect or patent foramen ovale as noted on 2-D or Doppler imaging. Agitated saline study did not reveal any evidence of right to le ft shunting Signed by : Hermann Zamudio, Electronically Approved : 07/03/2018 10:59:50
--- NOTE | 2018-07-03 12:25 | RAD ---
EXAM: Carotid Doppler sonogram. HISTORY: Cerebral vascular accident. TECHNIQUE: Clifford scale and color Doppler sonographic evaluation of the neck with spectral waveform analysis was performed and static images are submitted for review. FINDINGS: The peak systolic velocity within the right common carotid artery is 85 cm/sec. The peak systolic velocity within the right internal carotid artery is 66 cm/sec and the end diastolic velocity within the right internal carotid artery is 15 cm/sec. The right ICA/CCA ratio is 0.85. The peak systolic velocity within the left common carotid artery is 96 cm/sec. The peak systolic velocity within the left internal carotid artery is 86 cm/sec and the end diastolic velocity within the left internal carotid artery is 17 cm/sec. The left ICA/CCA ratio is 0.89. There is normal antegrade flow within both vertebral arteries. IMPRESSION: No Doppler evidence of hemodynamically significant stenosis within the carotid or vertebral arteries. PQRS Compliance Statement - Stenosis calculations for CT, MR and conventional angiography are based upon measurement of the distal ICA diameter in accordance with the NASCET methodology. Stenosis calculations for carotid ultrasound studies are derived from validated velocity criteria which are known to correlate with the NASCET methodology. Electronically signed by: Tonya Denton MD (07/03/2018 12:22 PM) [id number]
--- NOTE | 2018-07-03 12:57 | PDOC ---
CARDIO Progress Notes Date and Time Date of Service 07/03/2018 Time of Evaluation 1240 Subjective Subjective: No Chest Pain, No shortness of breath, No Palpitations Vitals Vitals Vital Signs Date Time Temp Pulse Resp B/P (MAP) Pulse Ox O2 Delivery O2 Flow Rate FiO2 07/03/18 10:23 97.9 59 17 184/73 (110) 98 Room Air 97.9 Weight Weight [ ] Input and Output Intake and Output Intake and Output 07/03/18 07:00 Intake Total 690 ml Balance 690 ml Intake Oral 690 ml # Voids 1 Laboratory Labs Laboratory Tests Test 07/03/18 04:00 Triglycerides Level 71 mg/dL (0-150) Cholesterol Level 161 mg/dL (0-200) LDL Cholesterol, Calculated 98 mg/dL (0-100) VLDL Cholesterol, Calculated 14 mg/dL (0-40) Non-HDL Cholesterol Calculated 112 mg/dL (0-129) HDL Cholesterol 49 mg/dL (40-60) Cholesterol/HDL Ratio 3.3 Physical Exam HEENT: Neck Supple W Full Motion Chest: Symmetric LUNGS: Clear to Auscultation Heart: S1S2, RRR (sr/sb) Abdomen: Soft N/T Extremities: No Calf Tenderness Neurology: alert, oriented, follow commands Assessment Assessment 1. Acute CVA: lacunar infarct per MRI. EF and WM nml. bubble study neg. 2. Asymptomatic Bradyarrhythmia: noted HR in the 30s with 3 episodes of 2-3 sec pauses with alternating SB and junctional rhythm 3. HTN: labile Recommendations 1. Digoxin has been discontinued since yesterday. Will DC aggrenox as the dipyridamole component may promote arrhythmi as noted above 2. Start on ECASA 325 mg 3. Increase losartan. Hydralazine IV PRN. 4. Continue statin 5. No AV fay blocking agents. Will arrange for outpt event monitor. 6. Follow up with Dr. Sadler August 2 at 1:30 PM MIRANDA LOPEZ APRN Jul 03, 2018 12:57
[2018-07-03] MEDS ORDERED: hydrALAZINE 20 MG/ML VIAL. IVP PRN (13:00)
[2018-07-03] MEDS ORDERED: LOSARTAN POTASSIUM 50 MG TABLET. PO ONE (13:00)
--- NOTE | 2018-07-03 13:52 | PDOC ---
PROGRESS NOTES Assessment Assessment Acute left carrasco radiata lacunar infarct extended to the posterior limb of the IC with edema. Increased weakness in right side. Slurred speech. Metabolic encephalopathy. Hypertensive urgency, SBP 207 mmHg. HTN, not well controlled. HLD. 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 Vit B12 insufficiency. RECOMMENDATIONS/PLAN: Changed to ASA daily per Cardiology. Continue Lipitor HS. Brain MRI w/o contrast. Vit B12 1 mg IM daily, change to PO when discharge. OT/PT. Discussed with her daughters in all detail at bedside on 07/02 and 07/03/18. Brain MRI: see above acute infract. Carotid A US + Doppler on 07/03/18: No hemodynamically high grade stenosis. Echo on 07/03/18: Unremarkable. Lab: Lipids high. HISTORY OF THE PRESENT ILLNESS: This is an 82-y-old female patient who was admitted due to increased weakness in her right side right. She thought that she was having another stroke. Reports that this occurred around 07:30 today, feeling like her right arm was weaker and has some numbness and still has it. No facial drooping, visual or auditory disturbances but daughter explained that she had some slurred speech. She has had 2 strokes in the past with mild right side weakness. Her daughter stated on 07/03/18 that the patient only took Aggrenox once a day but follow instruction of bid dosing per her PCP. PAST MEDICAL HISTORY Cardiovascular: HTN Pulmonary: No pertinent hx CENTRAL NERVOUS SYSTEM: CVA GI: GERD Heme/Onc: No pertinent hx Hepatobiliary: No pertinent hx Psych: No pertinent hx Musculoskeletal: Osteoarthritis Rheumatologic: No pertinent hx Infectious disease: No pertinent hx ENT: No pertinent hx Renal/: No pertinent hx Endocrine: No pertinent hx Dermatology: No pertinent hx PAST SURGICAL HISTORY Cataract Removal FAMILY HISTORY Diabetes (sister), Heart Disease (mother and brother) SOCIAL HISTORY Smoke: No ALCOHOL: none Drugs: None Lives: with Family ALLERGIES Coded Allergies: Penicillins (Unverified Allergy, Intermediate, 07/27/14) MEDICATIONS: Refer to [facility] REVIEW OF SYSTEMS: Constitutional: No malnutrition, weight loss, cachexia. Head: No recent traumatic brain or head injury. Skin: No edema, or rash. Ear: No infection. Eyes: No vision loss or color blindness. Nose: No bleeding or purulent discharges. Hearing: Hearing decrease. Neck: No injury. Breast: No history of cancer, masses,or discharges. Cardiac: HTN, HLD. Pulmonary: No COPD. GI: No GI ulcer, GI bleeding. Urinary/genital: UTI. Endocrinologic: No cousin face, craniofacial dysmorphism, polydactyly. Skeletomuscular: No muscular atrophy, deformity. Neurological: see HP. Psychiatric: Denies drug use/abuse. Otherwise, not [id number] review of systems. PHYSICAL EXAMINATION: General appearance is in subacute distress. HEENT: Normocephalic and nontraumatic. Eyes, nose, ears, and throat are unremarkable. Neck is supple. No lymphadenopathy. No bruits are heard over the carotid artery. No crepitus. Cardiovascular: S1, S2, regular rate and rhythm. Pulmonary: Clear to auscultation bilaterally. Abdomen: Bowel sounds are positive. Abdomen is soft, nontender, and nondistended. Extremities: No rash, lesions, or edema. No restriction of range of motion NEUROLOGICAL EXAMINATION: Alert Oriented partially to time, place and person. PERRL. EOMI. CN: no focal findings. Muscle tone: within normal. Muscle strength: 4+ right side. 5 left side. DTR: 2 Plantar reflex: Flexor response bilaterally Gait: not examined in chair. Sensory exam: no abnormal findings. No cerebellar signs elicited. F-T-N test fine. Objective Objective Vital Signs Date Time Temp Pulse Resp B/P (MAP) Pulse Ox O2 Delivery O2 Flow Rate FiO2 07/03/18 13:20 59 184/73 07/03/18 10:23 97.9 17 98 Room Air 97.9 Intake and Output 07/03/18 07:00 Intake Total 690 ml Balance 690 ml Intake Oral 690 ml # Voids 1 Vitals Signs Vitals VS - Last 72 Hours, by Label Date Time Temp Pulse Resp B/P (MAP) Pulse Ox O2 Delivery O2 Flow Rate FiO2 07/03/18 13:20 59 184/73 07/03/18 10:23 97.9 59 17 184/73 (110) 98 Room Air 97.9 07/03/18 10:16 60 151/64 07/03/18 08:00 Room Air 07/03/18 06:55 98.2 60 18 151/64 (93) 96 Room Air 98.2 07/03/18 03:29 98.1 58 18 161/61 (94) 93 Room Air 98.1 07/02/18 23:37 98.1 63 18 174/83 (113) 93 Room Air 98.1 07/02/18 20:00 Room Air 07/02/18 19:42 98.9 57 18 184/74 (110) 94 Room Air 98.9 07/02/18 14:25 Room Air 07/02/18 14:00 97.7 50 16 127/67 (87) 98 Room Air 97.7 07/02/18 12:25 54 94 07/02/18 11:25 48 97 07/02/18 10:25 48 97 07/02/18 09:52 98.6 58 18 207/88 (127) 98 98.6 Laboratory Laboratory Laboratory Tests Test 07/03/18 04:00 Triglycerides Level 71 mg/dL (0-150) Cholesterol Level 161 mg/dL (0-200) LDL Cholesterol, Calculated 98 mg/dL (0-100) VLDL Cholesterol, Calculated 14 mg/dL (0-40) Non-HDL Cholesterol Calculated 112 mg/dL (0-129) HDL Cholesterol 49 mg/dL (40-60) Cholesterol/HDL Ratio 3.3 Medication Medications Current Medications Aspirin (Ecotrin) 325 mg DAILYWBKFT PO ; Start 07/04/18 at 08:00 Atorvastatin Calcium (Lipitor) 10 mg QHS PO ; Start 07/03/18 at 21:00 Cyanocobalamin (Vitamin B-12) 1,000 mcg DAILY IM Last administered on at 10:17; Start 07/02/18 at 19:00 Digoxin (Lanoxin) 125 mcg DAILY PO ; Start 07/03/18 at 09:00; Stop 07/03/18 at 09:00; Status DC Dipyridamole/ Aspirin (Aggrenox) 1 cap BID PO Last administered on 07/03/18at 10 :17; Start 07/02/18 at 21:00; Stop 07/03/18 at 12:50; Status DC Hydralazine HCl (Apresoline Inj) 10 mg PRN Q4HRS PRN IVP ELEVATED BP, SEE COMMENTS; Start 07/03/18 at 13:00 Losartan Potassium (Cozaar) 50 mg 1X ONCE PO Last administered on 07/03/18at 13 :20; Start 07/03/18 at 13:00; Stop 07/03/18 at 13:01; Status DC Losartan Potassium (Cozaar) 50 mg DAILY PO Last administered on 07/03/18at 10:16 ; Start 07/02/18 at 15:30; Stop 07/03/18 at 12:50; Status DC Losartan Potassium (Cozaar) 100 mg DAILY PO ; Start 07/04/18 at 09:00 Comment Review of Relevant I have reviewed the following items barby (where applicable) has been applied. LYNN LOUISE MD Jul 03, 2018 13:52
--- NOTE | 2018-07-03 17:33 | NUR ---
Patient does not want to take any meds that were changed or added by cardiology until Dr. Slaughter was notified. This RN has paged Dr. Slaughter and has not heard back yet. Will page again.
[2018-07-03 19:00] VITALS: BP 148/71
[2018-07-03] MEDS: ATORVASTATIN CALCIUM 10 MG TABLET. PO SCH (20:33)
--- NOTE | 2018-07-03 21:24 | HP ---
ADMIT DATE: 07/02/2018 CHIEF COMPLAINT AND HISTORY OF PRESENT ILLNESS: This is 82-year-old white female who is well-known to me, follow up in the office. The patient was actually seen within the last week or two in the office for routine care. She was unable to afford her Aggrenox, which she had been taking for some time from the company. She was wondering how to be able to afford at that point in time. Upon questioning at this point, she has been taking it at a reduced level prior to starting with right-sided weakness and slurred speech on the day of admission, presenting to the Emergency Room where she was felt to be having a TIA versus stroke with a negative CT in the Emergency Room and admitted for the same. PAST MEDICAL HISTORY: Remarkable for prior CVA, hypertension, GERD. MEDICATIONS: Brought with the patient, listed on the computer and have been addressed. ALLERGIES: SHE IS ALLERGIC TO PENICILLIN. SOCIAL HISTORY: She is nonsmoker, nondrinker, does not abuse drugs. She is . FAMILY HISTORY: Noncontributory. REVIEW OF SYSTEMS: As mentioned above. PHYSICAL EXAMINATION: GENERAL: She is a well-developed, well-nourished white female, in no acute distress. Her slurred speech has improved overnight. Her right arm is somewhat clumsy, but still has a decent terra cotta mold maker. VITAL SIGNS: Stable. She is afebrile. Initial blood pressures were elevated. HEAD, EYES, EARS, NOSE AND THROAT: Unremarkable. NECK: Supple without bruit or thyromegaly. CHEST: Clear to auscultation and percussion. HEART: Regular rate and rhythm without S3, S4 or murmur. ABDOMEN: Soft, nontender without hepatosplenomegaly or mass. EXTREMITIES: Without cyanosis, clubbing, edema. NEUROLOGIC: Remarkable for the clumsiness of the right hand as well as may be a slightly decreased terra cotta mold maker. Speech is very mildly dysphasic. IMPRESSION: Likely cerebrovascular accident, likely related to decreased use of Aggrenox due to the cost of the same. Additional diagnoses are hypertension and gastroesophageal reflux disease. PLAN: The patient has been admitted. Neurology consultation has been obtained. The patient will be monitored, managed and treated appropriately. YANIRA MARTINI MD DR: QASIM/asa JOB#: [id number] / [id number]
[2018-07-03 23:00] VITALS: BP 166/76
[2018-07-04] VITALS (14 sets, daily range): BP systolic 115–181; BP diastolic 65–89
--- NOTE | 2018-07-04 07:10 | NUR ---
spoke with Dr. Dominguez regarding pauses in patients tele strip. Advised to keep patient NPO until he rounds.
[2018-07-04] MEDS: ASPIRIN ENTERIC COATED 325 MG TABLET.DR. PO SCH (08:00)
--- NOTE | 2018-07-04 08:56 | NUR ---
SW following pt. PT/OT recommends home with assistance/home with outpatient. SW will continue to follow.
[2018-07-04] MEDS: amLODIPine BESYLATE 5 MG TABLET PO SCH ×2 (09:00→17:54)
[2018-07-04] MEDS: LOSARTAN POTASSIUM 50 MG TABLET. PO SCH ×2 (09:00→17:53)
[2018-07-04] MEDS: CYANOCOBALAMIN (VITAMIN B-12) 1,000 MCG/ML VIAL IM SCH (09:51)
[2018-07-04] MEDS ORDERED: VANCOMYCIN 1GM IVPB FOR OMNI 250 ML IV ONE (11:45)
[2018-07-04] MEDS ORDERED: BACITRACIN 50,000 UNIT in IV NORMAL SALINE 250ML 250 ML IRR ONE (11:45)
--- NOTE | 2018-07-04 12:42 | PDOC ---
PROGRESS NOTES Assessment Assessment Acute left carrasco radiata lacunar infarct extended to the posterior limb of the IC with edema. Increased weakness in right side. Slurred speech. Metabolic encephalopathy. Hypertensive urgency, SBP 207 mmHg. HTN, not well controlled. HLD. 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 Vit B12 insufficiency. RECOMMENDATIONS/PLAN: Changed to ASA daily per Cardiology, but patient and her daughters wanted maintain on Aggrenox and this can be decided by her PCP. Continue Lipitor HS. Brain MRI w/o contrast. Vit B12 1 mg IM daily, change to PO when discharge. OT/PT. Discussed with her daughters in all detail at bedside on 07/04/18. Brain MRI: see above acute infract. Carotid A US + Doppler on 07/03/18: No hemodynamically high grade stenosis. Echo on 07/03/18: Unremarkable. Lab: Lipids high. HISTORY OF THE PRESENT ILLNESS: This is an 82-y-old female patient who was admitted due to increased weakness in her right side right. She thought that she was having another stroke. Reports that this occurred around 07:30 today, feeling like her right arm was weaker and has some numbness and still has it. No facial drooping, visual or auditory disturbances but daughter explained that she had some slurred speech. She has had 2 strokes in the past with mild right side weakness. Her daughter stated on 07/03/18 that the patient only took Aggrenox once a day but follow instruction of bid dosing per her PCP. Patient stated on 07/04/18 that she cold take Aggrenox bid dosing. PAST MEDICAL HISTORY Cardiovascular: HTN Pulmonary: No pertinent hx CENTRAL NERVOUS SYSTEM: CVA GI: GERD Heme/Onc: No pertinent hx Hepatobiliary: No pertinent hx Psych: No pertinent hx Musculoskeletal: Osteoarthritis Rheumatologic: No pertinent hx Infectious disease: No pertinent hx ENT: No pertinent hx Renal/: No pertinent hx Endocrine: No pertinent hx Dermatology: No pertinent hx PAST SURGICAL HISTORY Cataract Removal FAMILY HISTORY Diabetes (sister), Heart Disease (mother and brother) SOCIAL HISTORY Smoke: No ALCOHOL: none Drugs: None Lives: with Family ALLERGIES Coded Allergies: Penicillins (Unverified Allergy, Intermediate, 07/27/14) MEDICATIONS: Refer to [facility] REVIEW OF SYSTEMS: Constitutional: No malnutrition, weight loss, cachexia. Head: No recent traumatic brain or head injury. Skin: No edema, or rash. Ear: No infection. Eyes: No vision loss or color blindness. Nose: No bleeding or purulent discharges. Hearing: Hearing decrease. Neck: No injury. Breast: No history of cancer, masses,or discharges. Cardiac: HTN, HLD. Pulmonary: No COPD. GI: No GI ulcer, GI bleeding. Urinary/genital: UTI. Endocrinologic: No cousin face, craniofacial dysmorphism, polydactyly. Skeletomuscular: No muscular atrophy, deformity. Neurological: see HP. Psychiatric: Denies drug use/abuse. Otherwise, not [id number] review of systems. PHYSICAL EXAMINATION: General appearance is in subacute distress. HEENT: Normocephalic and nontraumatic. Eyes, nose, ears, and throat are unremarkable. Neck is supple. No lymphadenopathy. No bruits are heard over the carotid artery. No crepitus. Cardiovascular: S1, S2, regular rate and rhythm. Pulmonary: Clear to auscultation bilaterally. Abdomen: Bowel sounds are positive. Abdomen is soft, nontender, and nondistended. Extremities: No rash, lesions, or edema. No restriction of range of motion NEUROLOGICAL EXAMINATION: Alert Speech normally. Oriented partially to time, place and person. PERRL. EOMI. CN: no focal findings. Muscle tone: within normal. Muscle strength: 4+ right side. 5 left side. DTR: 2 Plantar reflex: Flexor response bilaterally Gait: not examined in chair. Sensory exam: no abnormal findings. No cerebellar signs elicited. F-T-N test fine. Objective Objective Vital Signs Date Time Temp Pulse Resp B/P (MAP) Pulse Ox O2 Delivery O2 Flow Rate FiO2 07/04/18 11:59 98.3 55 18 125/65 (85) 94 Room Air 98.3 Intake and Output 07/04/18 07:00 Intake Total 2020 ml Balance 2020 ml Intake Oral 2020 ml # Voids 10 Vitals Signs Vitals VS - Last 72 Hours, by Label Date Time Temp Pulse Resp B/P (MAP) Pulse Ox O2 Delivery O2 Flow Rate FiO2 07/04/18 11:59 98.3 55 18 125/65 (85) 94 Room Air 98.3 07/04/18 08:00 Room Air 07/04/18 07:00 98.3 64 18 152/68 (96) 97 Room Air 98.3 07/04/18 03:00 98.0 59 16 156/75 (102) 97 Room Air 98.0 07/03/18 23:00 98.3 59 16 166/76 (106) 95 Room Air 98.3 07/03/18 20:00 Room Air 07/03/18 19:00 98.4 65 16 148/71 (96) 95 Room Air 98.4 07/03/18 13:20 59 184/73 07/03/18 10:23 97.9 59 17 184/73 (110) 98 Room Air 97.9 07/03/18 10:16 60 151/64 07/03/18 08:00 Room Air Medication Medications Current Medications Amlodipine Besylate (Norvasc) 5 mg DAILY PO ; Start 07/04/18 at 09:00 Aspirin (Ecotrin) 325 mg DAILYWBKFT PO ; Start 07/04/18 at 08:00 Atorvastatin Calcium (Lipitor) 10 mg QHS PO Last administered on 07/03/18at 20: 33; Start 07/03/18 at 21:00 Bacitracin 25272 unit/Sodium Chloride 250 ml @ 0 mls/hr 1X ONCE IRR ; Start at 11:45; Stop 07/04/18 at 11:46; Status DC Hydralazine HCl (Apresoline Inj) 10 mg PRN Q4HRS PRN IVP ELEVATED BP, SEE COMMENTS; Start 07/03/18 at 13:00 Losartan Potassium (Cozaar) 50 mg 1X ONCE PO Last administered on 07/03/18at 13 :20; Start 07/03/18 at 13:00; Stop 07/03/18 at 13:01; Status DC Losartan Potassium (Cozaar) 100 mg DAILY PO ; Start 07/04/18 at 09:00 Vancomycin HCl 250 ml @ 250 mls/hr 1X ONCE IV ; Start 07/04/18 at 11:45; Stop 07/04/18 at 12:44 Vancomycin HCl 1 gm/Dextrose 250 ml @ 250 mls/hr 1X ONCE IV ; Start 07/05/18 at 06:00; Stop 07/05/18 at 06:59; Status UNV Comment Review of Relevant I have reviewed the following items barby (where applicable) has been applied. LYNN LOUISE MD Jul 04, 2018 12:42
[2018-07-04] MEDS ORDERED: fentaNYL PF VIAL 100 MCG/2 ML VIAL ONE (14:16)
[2018-07-04] MEDS ORDERED: MIDAZOLAM HCL/PF 5 MG/5 ML VIAL. ONE (14:16)
[2018-07-04] MEDS ORDERED: VANCOMYCIN 1GM IVPB FOR OMNI 250 ML ONE (14:31)
[2018-07-04] MEDS ORDERED: LIDOCAINE 2%/EPI 1:100,000 20 ML VIAL. ONE (15:07)
--- NOTE | 2018-07-04 15:10 | NUR ---
Transfer nursing report given to Diamond on 2N.
[2018-07-04] MEDS ORDERED: LIDOCAINE 2%/EPI 1:100,000 20 ML VIAL. IJ ONE (15:30)
[2018-07-04] MEDS ORDERED: fentaNYL PF VIAL 100 MCG/2 ML VIAL IV ONE (15:30)
[2018-07-04] MEDS ORDERED: MIDAZOLAM HCL/PF 5 MG/5 ML VIAL. IV ONE (15:30)
--- NOTE | 2018-07-04 16:28 | PDOC ---
MODERATE SEDATION ASSESSMENT RISKS/ALTERNATIVES Risks/Alternatives Risks and alternatives of this type of sedation and procedure discussed with: RISK/ALTERNATIVES: Patient H & P ON CHART H & P H & P on chart and reviewed for co-morbid conditions and appropriate labs. H&P ON CHART: Yes STATUS PREG STATUS ASSESSED: N/A MEDS/ALLERGIES REVIEWED Meds/Allergies Reviewed Medications and Allergies including time and route of recently administered narcotics and sedatives. MEDS/ALLERGIES REVIEWED: Yes ASA RATING ASA RATING: III AIRWAY ASSESSMENT Airway Assessment Airway patency, oral function limitations, presence of caps, crowns, dentures, partials, and ability to extend neck assessed. AIRWAY ASSESSMENT: Yes MALLAMPATI SCORE MALLAMPATI SCORE: II PRE-SEDATION ASSESSMENT PRE-SEDATION ASSESSMENT: Yes SARANYA MILLER MD Jul 04, 2018 16:28
[2018-07-04] MEDS ORDERED: NO ANTICOAGULANT THERAPY. MC PRN (16:30)
--- NOTE | 2018-07-04 16:30 | NUR ---
Patient arrived to room 201 from getting PPM at around 1630. Patient A&OX4. VSS. No complaints of pain. PPM dressing CDI. Family at bedside.
--- NOTE | 2018-07-04 16:35 | CARD ---
MR#: [id number] Date of Study: 07/04/2018 Ordering Physician: YANIRA MARTINI Referring Physician: YANIRA MARTINI Tech: APPROVED REPORT PROCEDURES Successful implantation of Biotronik dual-chamber permanent pacemaker INDICATIONS Sick sinus syndrome with significant pauses PROCEDURE After explaining the risks, benefits, and alternative options, informed consent was obtained from the patient. The patient was brought to the cardiac catheterization lab and the left chest and shoulder were prepp ed and draped in a sterile manner. 30 mL of 2% lidocaine was infiltrated into the skin and subcutaneous tissues for local anesthesia. An incision was made over the left infraclavicular fossa and using blunt dissection and cautery a pocke t was created. Venous access was obtained in the left subclavian vein and 8 and 6 Spanish sheaths inse rted. A Biotronik bipolar active fixation right ventricle lead model solia, serial #[id number] was advanced u nder fluoroscopy guidance and the tip was positioned in the right ventricular apex. Subsequently, a B iotronik bipolar active fixation right atrial lead model solia, serial #[id number] was positioned in th e right atrial appendage under fluoroscopy guidance. The leads were secured into place and attached t o a Biotronik dual-chamber permanent pacemaker generator model Eluna 8 DR-T serial #[id number]. This wa s placed in the pocket that was subsequently closed in 3 layers. Hemostasis was secured. The right ventricular lead showed a sensing amplitude of 9.9 mV, impedance of 574 ohms and a threshol d of 0.5 V. The right atrial lead showed a sensing amplitude of 6.4 mV, impedance of 569 ohms and a t hreshold of 0.7 V. Patient tolerated the procedure well. There were no immediate complications. CONCLUSION Successful implantation of Biotronik dual-chamber permanent pacemaker for sick sinus syndrome. Signed by : Abilio Dominguez, Electronically Approved : 07/04/2018 16:34:33
--- NOTE | 2018-07-04 17:18 | RAD ---
EXAM: AP View of the chest DATE: 07/04/2018 4:31 PM INDICATION: INPATIENT. POST PACEMAKER. PRIOR XRAY COMPARISON: 07/24/2014 FINDINGS/ IMPRESSION: Cardiac generator pack obscures a portion of the left axilla with leads projecting over the right atrium and right ventricle. The heart is not enlarged. Prominence of the pulmonary arterial trunk may be seen with pulmonary arterial hypertension. Atherosclerotic calcifications of the aorta are seen. Caliber granuloma are seen bilaterally. No lobar consolidation. No pleural effusion or pneumothorax. Electronically signed by: Elver Delgado MD (07/04/2018 5:15 PM) [facility]
[2018-07-04] MEDS: ATORVASTATIN CALCIUM 10 MG TABLET. PO SCH (20:24)
--- NOTE | 2018-07-05 00:27 | PN ---
DATE: 07/04/2018 LOCATION: She is in room 646. SUBJECTIVE: The patient is awake, alert, daughter is present. She feels generally well. OBJECTIVE: VITAL SIGNS: Stable. She is afebrile. Her blood pressures are still running for the most part a little high and amlodipine will be added to her regimen today. She was noted to have pauses during the night again on her telemetry monitoring and is n.p.o. until Cardiology sees her for consideration of a pacemaker. I explained to the patient that I am not sure why a digoxin was started, but will look in the office record today to try to figure that out. CHEST: Clear. HEART: Regular. ABDOMEN: Benign. NEUROLOGIC: Speech is essentially clear today. HAND: Right hand is still a little bit weak and clumsy. Right arm was still a little bit weak and clumsy. MRI confirms an acute lacunar infarct involving the left carrasco radiata with extension into the posterior limb of the left internal capsule. Carotid Doppler showed no significant disease. IMPRESSION: 1. Acute cerebrovascular accident with right arm weakness as well as some dysphagia, which is improving. 2. Hypertension. 3. History of prior cerebrovascular accident on Aggrenox with misuse of the same prior to admission because of cost of the same and if she had been taking Aggrenox, we likely would not have been here. PLAN: Add Norvasc, await Cardiology's opinion and need for a pacemaker and again will review how the digoxin was over started once I get to the office today. YANIRA MARTINI MD DR: QASIM/asa JOB#: [id number] / [id number]
[2018-07-05 03:35] VITALS: BP 175/65
[2018-07-05] MEDS ORDERED: VANCOMYCIN 1 GM in IV DEXTROSE 5% 250 ML IV ONE ×2 (04:00→06:00)
[2018-07-05 07:15] VITALS: BP 181/73
[2018-07-05] MEDS: amLODIPine BESYLATE 5 MG TABLET PO SCH (08:46)
[2018-07-05] MEDS: ASPIRIN ENTERIC COATED 325 MG TABLET.DR. PO SCH (08:46)
[2018-07-05] MEDS: CYANOCOBALAMIN (VITAMIN B-12) 1,000 MCG/ML VIAL IM SCH (08:47)
[2018-07-05] MEDS: LOSARTAN POTASSIUM 50 MG TABLET. PO SCH (08:47)
--- NOTE | 2018-07-05 09:34 | RAD ---
PORTABLE CHEST 1V History: S/P 1 DAY PACEMAKER Comparison: July 04, 2018 Findings: Single view of the chest is submitted. There is again dual lead left electronic cardiac device, leads unchanged in position. There is no pneumothorax. Cardiac silhouette is stable. There is no significant pleural fluid or lobar infiltrate. Impression: 1. There is again dual lead left electronic cardiac device, no pneumothorax identified. Electronically signed by: Geovani Tim MD (07/05/2018 9:31 AM) [facility]
[2018-07-05 11:00] VITALS: BP 147/68
--- NOTE | 2018-07-05 11:10 | PDOC ---
PROGRESS NOTES Subjective Subjective Feeling better. Objective Objective Vital Signs Date Time Temp Pulse Resp B/P (MAP) Pulse Ox O2 Delivery O2 Flow Rate FiO2 07/05/18 08:47 77 164/73 07/05/18 08:00 Room Air 07/05/18 07:15 98.6 24 94 98.6 07/04/18 16:16 2.0 Intake and Output 07/05/18 06:59 Intake Total 300 ml Balance 300 ml Intake Oral 300 ml Physical Exam Abdomen: Soft, No tenderness Heart: Regular rate (SR), Normal S1, Normal S2, Other (2/6 systolic mumrur to LLS border) Extremities: No cyanosis, No edema General: Alert, Oriented X3, Cooperative, No acute distress HEENT: Atraumatic, Mucous membr. moist/pink Lungs: Clear to auscultation, Normal air movement MUSCULOSKELETAL: Osteoarthritic changes both hands, Other (left arm weakness) Neuro: Normal speech, Sensation intact Psych/Mental Status: Mental status NL, Mood NL Skin: No breakdown, No significant lesion Assessment Assessment 1. Acute CVA: lacunar infarct per MRI. EF and WM nml. bubble study neg. 2. Sick sinus syndrome s/p permanent pacemaker implantation yesterday. Incision looks good. Chest x-ray without any pneumothorax. Device interrogation normal. 3. HTN: Better controlled. Okay for discharge from cardiac standpoint. Follow-up with our office in 2 weeks for wound check. Plan Plan of Care Problems Medical Problems: (1) CVA (cerebral vascular accident) Status: Acute Comment Review of Relevant I have reviewed the following items barby (where applicable) has been applied. Labs Microbiology 07/02/18 Urine Culture - Final, Complete 07/02/18 Urine Culture Result 1 (YASMIN) - Final, Complete Medications Current Medications Bacitracin 76139 unit/Sodium Chloride 250 ml @ 0 mls/hr 1X ONCE IRR Last administered on 07/04/18at 16:14; Start 07/04/18 at 11:45; Stop 07/04/18 at 11:46 ; Status DC Fentanyl Citrate (Fentanyl 2ml Vial) 100 mcg 1X ONCE IV Last administered on at 16:15; Start 07/04/18 at 15:30; Stop 07/04/18 at 15:31; Status DC Fentanyl Citrate (Fentanyl 2ml Vial) 100 mcg STK-MED ONCE .ROUTE ; Start at 14:16; Stop 07/04/18 at 14:17; Status DC Info (No Anticoagulant Therapy) 1 ea CONT PRN PRN MC PER PROTOCOL; Start at 16:30 Lidocaine/ Epinephrine (LIDOCAINE 2%-EPI 1:100,000 multi-dose) 20 ml 1X ONCE IJ Last administered on 07/04/18at 16:15; Start 07/04/18 at 15:30; Stop at 15:31; Status DC Lidocaine/ Epinephrine (LIDOCAINE 2%-EPI 1:100,000 multi-dose) 20 ml STK-MED ONCE .ROUTE ; Start 07/04/18 at 15:07; Stop 07/04/18 at 15:08; Status DC Midazolam HCl (Versed) 5 mg 1X ONCE IV Last administered on 07/04/18at 16:16; Start 07/04/18 at 15:30; Stop 07/04/18 at 15:31; Status DC Midazolam HCl (Versed) 5 mg STK-MED ONCE .ROUTE ; Start 07/04/18 at 14:16; Stop 07/04/18 at 14:17; Status DC Vancomycin HCl 250 ml @ 250 mls/hr 1X ONCE IV Last administered on 07/04/18at 16:14; Start 07/04/18 at 11:45; Stop 07/04/18 at 12:44; Status DC Vancomycin HCl 250 ml @ As Directed STK-MED ONCE .ROUTE ; Start 07/04/18 at 14: 31; Stop 07/04/18 at 14:32; Status DC Vancomycin HCl 1 gm/Dextrose 250 ml @ 250 mls/hr 1X ONCE IV Last administered on 07/05/18at 03:18; Start 07/05/18 at 04:00; Stop 07/05/18 at 04:59 ; Status DC Vancomycin HCl 1 gm/Dextrose 250 ml @ 250 mls/hr 1X ONCE IV ; Start 07/05/18 at 06:00; Stop 07/05/18 at 06:59; Status UNV Vitals/I & O Vital Sign - Last 24 Hours 07/04/18 07/04/18 07/04/18 07/04/18 11:59 16:15 16:16 16:30 Temp 98.3 98.3 Pulse 55 72 70 Resp 18 16 16 B/P (MAP) 125/65 (85) 174/73 (106) Pulse Ox 94 98 98 O2 Delivery Room Air Nasal Cannula Nasal Cannula O2 Flow Rate 2.0 2.0 07/04/18 07/04/18 07/04/18 07/04/18 16:45 16:45 17:00 17:15 Pulse 72 71 72 B/P (MAP) 170/66 (100) 165/68 (100) 179/74 (109) Pulse Ox 94 93 93 O2 Delivery Room Air 07/04/18 07/04/18 07/04/18 07/04/18 17:30 17:53 17:54 18:00 Pulse 76 77 75 75 B/P (MAP) 181/70 (107) 115/89 115/89 115/89 (98) Pulse Ox 93 94 07/04/18 07/04/18 07/04/18 07/04/18 18:15 18:20 18:50 19:05 Temp 98.5 98.5 Pulse 72 70 78 66 Resp 17 B/P (MAP) 146/70 (95) 135/66 (89) 135/66 (89) Pulse Ox 95 94 O2 Delivery Room Air Room Air Room Air 07/04/18 07/04/18 07/05/18 07/05/18 19:32 23:30 03:35 07:15 Temp 98.3 98.7 98.6 98.3 98.7 98.6 Pulse 73 73 68 Resp 19 17 24 B/P (MAP) 152/69 (96) 175/65 (101) 181/73 (109) Pulse Ox 95 94 94 O2 Delivery Room Air Room Air Room Air Room Air 07/05/18 07/05/18 07/05/18 08:00 08:46 08:47 Pulse 77 77 B/P (MAP) 164/73 164/73 O2 Delivery Room Air Intake and Output 07/04/18 07/04/18 07/05/18 14:59 22:59 06:59 Intake Total 0 ml 300 ml 0 ml Balance 0 ml 300 ml 0 ml SARANYA MILLER MD Jul 05, 2018 11:10
--- NOTE | 2018-07-05 12:53 | PDOC ---
Provider Note Provider Note [id number] ASHLEIGH WALL MD Jul 05, 2018 12:53
[2018-07-05] MEDS ORDERED: AMLO5TAB10 PO (14:15)
[2018-07-05] MEDS ORDERED: ATOR10TA PO (14:16)
[2018-07-05] MEDS ORDERED: ASPI325T8 PO (14:17)
--- NOTE | 2018-07-05 14:24 | PDOC ---
PROGRESS NOTES Assessment Assessment Acute left carrasco radiata lacunar infarct extended to the posterior limb of the IC with edema. Increased weakness in right side. Slurred speech. Metabolic encephalopathy. Hypertensive urgency, SBP 207 mmHg. HTN, not well controlled. HLD. SSS. 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 Vit B12 insufficiency. RECOMMENDATIONS/PLAN: ASA 325 mg daily per Cardiology. Continue Lipitor HS. Pacemaker placement on 07/04/18. Vit B12 1 mg IM daily, change to PO when discharge. OT/PT. Discussed with her daughter at bedside on 07/05/18. Brain MRI: see above acute infract. Carotid A US + Doppler on 07/03/18: No hemodynamically high grade stenosis. Echo on 07/03/18: Unremarkable. Lab: Lipids high. HISTORY OF THE PRESENT ILLNESS: This is an 82-y-old female patient who was admitted due to increased weakness in her right side right. She thought that she was having another stroke. Reports that this occurred around 07:30 today, feeling like her right arm was weaker and has some numbness and still has it. No facial drooping, visual or auditory disturbances but daughter explained that she had some slurred speech. She has had 2 strokes in the past with mild right side weakness. Her daughter stated on 07/03/18 that the patient only took Aggrenox once a day but follow instruction of bid dosing per her PCP. Patient stated on 07/04/18 that she cold take Aggrenox bid dosing. PAST MEDICAL HISTORY Cardiovascular: HTN Pulmonary: No pertinent hx CENTRAL NERVOUS SYSTEM: CVA GI: GERD Heme/Onc: No pertinent hx Hepatobiliary: No pertinent hx Psych: No pertinent hx Musculoskeletal: Osteoarthritis Rheumatologic: No pertinent hx Infectious disease: No pertinent hx ENT: No pertinent hx Renal/: No pertinent hx Endocrine: No pertinent hx Dermatology: No pertinent hx PAST SURGICAL HISTORY Cataract Removal FAMILY HISTORY Diabetes (sister), Heart Disease (mother and brother) SOCIAL HISTORY Smoke: No ALCOHOL: none Drugs: None Lives: with Family ALLERGIES Coded Allergies: Penicillins (Unverified Allergy, Intermediate, 07/27/14) MEDICATIONS: Refer to [facility] REVIEW OF SYSTEMS: Constitutional: No malnutrition, weight loss, cachexia. Head: No recent traumatic brain or head injury. Skin: No edema, or rash. Ear: No infection. Eyes: No vision loss or color blindness. Nose: No bleeding or purulent discharges. Hearing: Hearing decrease. Neck: No injury. Breast: No history of cancer, masses,or discharges. Cardiac: HTN, HLD. Pulmonary: No COPD. GI: No GI ulcer, GI bleeding. Urinary/genital: UTI. Endocrinologic: No cousin face, craniofacial dysmorphism, polydactyly. Skeletomuscular: No muscular atrophy, deformity. Neurological: see HP. Psychiatric: Denies drug use/abuse. Otherwise, not [id number] review of systems. PHYSICAL EXAMINATION: General appearance is in subacute distress. HEENT: Normocephalic and nontraumatic. Eyes, nose, ears, and throat are unremarkable. Neck is supple. No lymphadenopathy. No bruits are heard over the carotid artery. No crepitus. Cardiovascular: S1, S2, regular rate and rhythm. Pulmonary: Clear to auscultation bilaterally. Abdomen: Bowel sounds are positive. Abdomen is soft, nontender, and nondistended. Extremities: No rash, lesions, or edema. No restriction of range of motion NEUROLOGICAL EXAMINATION: Alert Speech normal. Oriented partially to time, place and person. PERRL. EOMI. CN: no focal findings. Muscle tone: within normal. Muscle strength: 5-. DTR: 2 Plantar reflex: Flexor response bilaterally Gait: able to walk. Sensory exam: no abnormal findings. No cerebellar signs elicited. F-T-N test fine. Objective Objective Vital Signs Date Time Temp Pulse Resp B/P (MAP) Pulse Ox O2 Delivery O2 Flow Rate FiO2 07/05/18 11:00 99.1 61 12 147/68 (94) 95 Room Air 99.1 07/04/18 16:16 2.0 Intake and Output 07/05/18 06:59 Intake Total 300 ml Balance 300 ml Intake Oral 300 ml Vitals Signs Vitals VS - Last 72 Hours, by Label Date Time Temp Pulse Resp B/P (MAP) Pulse Ox O2 Delivery O2 Flow Rate FiO2 07/05/18 11:00 99.1 61 12 147/68 (94) 95 Room Air 99.1 07/05/18 08:47 77 164/73 07/05/18 08:46 77 164/73 07/05/18 08:00 Room Air 07/05/18 07:15 98.6 68 24 181/73 (109) 94 Room Air 98.6 07/05/18 03:35 98.7 73 17 175/65 (101) 94 Room Air 98.7 07/04/18 23:30 98.3 73 19 152/69 (96) 95 Room Air 98.3 07/04/18 19:32 Room Air 07/04/18 19:05 98.5 66 17 135/66 (89) 94 Room Air 98.5 07/04/18 18:50 78 135/66 (89) Room Air 07/04/18 18:20 70 146/70 (95) Room Air 07/04/18 18:15 72 95 07/04/18 18:00 75 115/89 (98) 94 07/04/18 17:54 75 115/89 07/04/18 17:53 77 115/89 07/04/18 17:30 76 181/70 (107) 93 07/04/18 17:15 72 179/74 (109) 93 07/04/18 17:00 71 165/68 (100) 93 07/04/18 16:45 72 170/66 (100) 94 07/04/18 16:45 Room Air 07/04/18 16:30 70 174/73 (106) 07/04/18 16:16 72 16 98 Nasal Cannula 2.0 07/04/18 16:15 16 98 Nasal Cannula 2.0 07/04/18 11:59 98.3 55 18 125/65 (85) 94 Room Air 98.3 07/04/18 08:00 Room Air 07/04/18 07:00 98.3 64 18 152/68 (96) 97 Room Air 98.3 Laboratory Laboratory Microbiology 07/02/18 Urine Culture - Final, Complete 07/02/18 Urine Culture Result 1 (YASMIN) - Final, Complete Medication Medications Current Medications Fentanyl Citrate (Fentanyl 2ml Vial) 100 mcg 1X ONCE IV Last administered on at 16:15; Start 07/04/18 at 15:30; Stop 07/04/18 at 15:31; Status DC Info (No Anticoagulant Therapy) 1 ea CONT PRN PRN MC PER PROTOCOL; Start at 16:30 Lidocaine/ Epinephrine (LIDOCAINE 2%-EPI 1:100,000 multi-dose) 20 ml 1X ONCE IJ Last administered on 07/04/18at 16:15; Start 07/04/18 at 15:30; Stop at 15:31; Status DC Lidocaine/ Epinephrine (LIDOCAINE 2%-EPI 1:100,000 multi-dose) 20 ml STK-MED ONCE .ROUTE ; Start 07/04/18 at 15:07; Stop 07/04/18 at 15:08; Status DC Midazolam HCl (Versed) 5 mg 1X ONCE IV Last administered on 07/04/18at 16:16; Start 07/04/18 at 15:30; Stop 07/04/18 at 15:31; Status DC Vancomycin HCl 250 ml @ As Directed STK-MED ONCE .ROUTE ; Start 07/04/18 at 14: 31; Stop 07/04/18 at 14:32; Status DC Vancomycin HCl 1 gm/Dextrose 250 ml @ 250 mls/hr 1X ONCE IV Last administered on 07/05/18at 03:18; Start 07/05/18 at 04:00; Stop 07/05/18 at 04:59 ; Status DC Vancomycin HCl 1 gm/Dextrose 250 ml @ 250 mls/hr 1X ONCE IV ; Start 07/05/18 at 06:00; Stop 07/05/18 at 06:59; Status UNV Comment Review of Relevant I have reviewed the following items barby (where applicable) has been applied. LYNN LOUISE MD Jul 05, 2018 14:24
--- NOTE | 2018-07-05 15:00 | NUR ---
Discharge Note: GIANNA JENNINGS Discharge instructions and discharge home medications reviewed with Patient and a copy given. All questions have been answered and understanding verbalized. Follow up appointments and prescriptions given to patient. Patient had a score of 1 on NIH stroke scale upon discharge. The following instructions and handouts were given: Stroke education, Amlodipine tablets, Atorvastatin tablets, and Pacemaker care. Discontinued lines and drains: Peripheral IV intact. Patient discharged to Home or Self Care with Family Member via Wheelchair
--- NOTE | 2018-07-05 21:40 | DS ---
DATE OF DISCHARGE: 07/05/2018 HOSPITAL SUMMARY: An 82-year-old white female with history of hypertension and prior CVAs was taking Aggrenox at home and blood pressure medication, but came in with right arm weakness. There was no speech defect, leg weakness, headache, or other symptoms. CBC and chemistry profile were unremarkable. TSH was normal. B12 level borderline low at 234, cholesterol good 161, HDL 49, LDL 98. Digoxin level was low at 0.7. Urinalysis unremarkable. CT scan of the head showed no acute hemorrhage and the old lacunar infarct in the left thalamus was noted. MRI of the brain showed an acute lacunar infarct of the left carrasco radiata with extension into the posterior limb of the left internal capsule. Carotid Doppler studies were unremarkable as was an echocardiogram with bubble study and chest x-ray. She underwent cardiac monitoring and was found to have significant bradycardia and a pacemaker was placed by Dr. Dominguez on 07/04/2018 with good recovery. Neurologic status is slowly improving and right arm weakness is the only symptom anatomically consistent with her MRI report and Dr. Slaughter added amlodipine with better blood pressure control. She and her daughter are comfortable to be discharged today and followed as an outpatient. FINAL DIAGNOSES: 1. Acute cerebrovascular accident with left internal capsule with right arm weakness. 2. Symptomatic bradycardia. 3. Borderline vitamin B12 deficiency. OPERATIONS AND PROCEDURES: Pacemaker placement. COMPLICATIONS: None. CONSULTATIONS: Dr. Dominguez, Dr. Newton. DISPOSITION: Amlodipine 5 mg added to the home losartan. She will take aspirin daily instead of Aggrenox as the Aggrenox has not helped her. She is off digoxin and will need to have a consideration for methylmalonic acid level to check the level of B12 deficiency with taking oral vitamin B12 is certainly a reasonable option. ACTIVITY: As tolerated. FOLLOWUP: With Dr. Slaughter in 1 week for blood pressure and Dr. Dominguez in 2 weeks for pacemaker. Prognosis is good. She will also take atorvastatin 10 mg daily for post-stroke of recovery. ASHLEIGH WALL MD DR: ISABELLE/asa JOB#: [id number] / [id number]
== END 2018-07-05 15:00 | disposition home or self-care (01) | DRG 40 ==
LOC: ER 09:30 → 6 SOUTH 11:47 → 2 NORTH 07-04 15:27
PROVIDERS: ADMIT Family Medicine; ATTEND Family Medicine
PROC: 0JH606Z Insertion of Pacemaker, Dual Chamber into Chest Subcutaneous Tissue and Fascia, Open Approach (ICD-10-PCS; principal; 2018-07-04)
PROC: 02H63JZ Insertion of Pacemaker Lead into Right Atrium, Percutaneous Approach (ICD-10-PCS; 2018-07-04)
PROC: 02HK3JZ Insertion of Pacemaker Lead into Right Ventricle, Percutaneous Approach (ICD-10-PCS; 2018-07-04)
DX: I63.81 Other cerebral infarction due to occlusion or stenosis of small artery (principal); G93.41 Metabolic encephalopathy; G93.6 Cerebral edema; I45.2 Bifascicular block; I69.351 Hemiplegia and hemiparesis following cerebral infarction affecting right dominant side; I49.5 Sick sinus syndrome; I16.0 Hypertensive urgency; I10 Essential (primary) hypertension; E53.8 Deficiency of other specified B group vitamins; E78.5 Hyperlipidemia, unspecified; K21.9 Gastro-esophageal reflux disease without esophagitis; R13.10 Dysphagia, unspecified; M19.90 Unspecified osteoarthritis, unspecified site; Z79.82 Long term (current) use of aspirin; Z82.49 Family history of ischemic heart disease and other diseases of the circulatory system; Z83.3 Family history of diabetes mellitus; Z88.0 Allergy status to penicillin; Z79.899 Other long term (current) drug therapy
CPT/HCPCS: 33208; 36415; 70450; 70551; 71045; 80053; 80061; 80162; 81001; 82550; 82607; 84443; 85025; 85610; 87086; 93005; 93306; 93880; 97605; 99152; 99153; C1785; C1898; J2250; J3010; J3370; J3420; J3490; J7050; 92610; 97110; 97116; 97530; 99285-25; J7030

== ENCOUNTER 2021-07-09 16:46 | Emergency (ER) | payer MEDICARE, BC ==
[~2021-07-09] VITALS: Ht 160 cm; Wt 76.1 kg
[~2021-07-09 16:46] MED LIST changes: +AMLO-186 PO; +ASPI325T8 PO; +ATOR10TA PO; -DIGO125T PO; +DIGO125T3 PO; +IRBE300T23 PO; -IRBE300T3 PO
[2021-07-09] MEDS ORDERED: TETRACAINE 0.5% OPHTH SOLUTION 4ML BOTTLE. OD ONE (18:15)
[2021-07-09] MEDS ORDERED: FLUORESCEIN OPHTH TEST STRIP. OD ONE (18:15)
--- NOTE | 2021-07-09 19:26 | RAD ---
CT HEAD/BRAIN WO Date: 07/09/2021 6:41 PM Clinical Indication: RIGHT EYE VISION LOST Comparison: MRI 07/03/2018. Technique: 5 mm axial tomographic images were obtained of the head without contrast. These were view ed on brain and bone windows. One or more of the following dose reduction techniques were utilized: A utomated exposure control (AEC), Adjustment of mA and/or kV according to patient size, Use of iterati ve reconstruction technique such as ASiR, CT scan done according to ALARA and image gently/image stein ly Findings: Moderate generalized cerebral and cerebellar volume loss. Moderate nonspecific periventricular hypoat tenuation, most commonly seen with chronic small vessel ischemic disease. Calcified atherosclerosis o f the bilateral cavernous and paraclinoid internal carotid arteries. Left thalamic and basal ganglia chronic lacunar infarcts. Tiny lipoma in the interhemispheric fissure along the anterior falx. No acute hemorrhage. The ventric les are normal in size, shape, and morphology. The otero-white matter junction is normal. The subarach noid cisterns are patent. The visualized paranasal sinuses are normal. The visualized portions of the orbits and globes are no rmal. The mastoid air cells are clear. The district scout executive topogram shows no lytic lesion or fracture. Impression: No acute intracranial process. Moderate cerebral volume loss. Moderate chronic small vessel ischemic disease. Electronically signed by: Geovani Munoz MD (07/09/2021 7:23 PM) [facility]
[2021-07-09 19:27] LABS: BASO # 0.1 x10^3/uL (0.0-0.2); BASO % 1 % (0-3); EOS # 0.2 x10^3/uL (0.0-0.7); EOS % 3 % (0-3); HEMATOCRIT 38.4 % (36.0-47.0); HEMOGLOBIN 12.7 g/dL (12.0-15.5); LYMPH # 2.1 x10^3/uL (1.0-4.8); LYMPH % 34 % (24-48); MEAN CORPUSCULAR HEMOGLOBIN 30 pg (25-35); MEAN CORPUSCULAR HGB CONC 33 g/dL (31-37); MEAN CORPUSCULAR VOLUME 92 fL (79-100); MONO # 0.4 x10^3/uL (0.0-1.1); MONO % 7 % (0-9); NEUT # 3.5 x10^3/uL (1.8-7.7); NEUT % 55 % (31-73); PLATELET COUNT 256 x10^3/uL (140-400); RED BLOOD COUNT 4.18 x10^6/uL (3.50-5.40); RED CELL DISTRIBUTION WIDTH 13.4 % (11.5-14.5); WHITE BLOOD COUNT 6.3 x10^3/uL (4.0-11.0)
--- NOTE | 2021-07-09 19:27 | PHYS DOC ---
Past Medical History Past Medical History: CVA, GERD, Hypertension, Stroke Additional Past Medical Histor: right sided weakness Past Surgical History: Hysterectomy, Pacemaker Smoking Status: Never Smoker Alcohol Use: Rarely Drug Use: None General Adult EDM: Chief Complaint: VISION PROBLEM HPI: HPI: Patient is a 85 year old female who presents with a 1430 today she got a sudden big brown ione in her vision with yellow lines coming out of it. She states about a month ago she did go to her eye doctor and they said she had vitreous floaters but they appear to be resolving. She denies headache, focal weakness, numbness or tingling, abdominal pain, chest pain, shortness of air, dizziness, fever. Patient has a history of CVA, hypertension, high cholesterol, GERD, hysterectomy. Review of Systems: Review of Systems: Constitutional: Denies fever or chills. [] Eyes: + change in visual acuity. [] HENT: Denies nasal congestion or sore throat. [] Respiratory: Denies cough or shortness of breath. [] Cardiovascular: Denies chest pain or edema. [] GI: Denies abdominal pain, nausea, vomiting, bloody stools or diarrhea. [] : Denies dysuria. [] Musculoskeletal: Denies back pain or joint pain. [] Integument: Denies rash. [] Neurologic: Denies headache, focal weakness or sensory changes. [] Endocrine: Denies polyuria or polydipsia. [] Lymphatic: Denies swollen glands. [] Psychiatric: Denies depression or anxiety. [] Heart Score: C/O Chest Pain: No HEART Score for Chest Pain: HEART Score for Chest Pain Response (Comments) Value History Slighlty/Non-Suspicious 0 ECG Nonspecific Repolarizatio 1 Age > 65 2 Risk Factors 1 or 2 Risk Factors 1 Troponin < Normal Limit 0 Total 4 Risk Factors: Risk Factors: DM, Current or recent (<one month) smoker, HTN, HLP, family history of CAD, obesity. Risk Scores: Score 0 - 3: 2.5% MACE over next 6 weeks - Discharge Home Score 4 - 6: 20.3% MACE over next 6 weeks - Admit for Clinical Observation Score 7 - 10: 72.7% MACE over next 6 weeks - Early Invasive Strategies Current Medications: Current Medications Medications (Trade) Dose Ordered Sig/Magali Start Time Stop Time Status Last Admin Dose Admin Fluorescein Sodium (Ful-Nila) 1 strip 1X ONCE 07/09/21 18:15 07/09/21 18:16 DC 07/09/21 18:23 1 STRIP Tetracaine HCl (Tetracaine) 1 drop 1X ONCE 07/09/21 18:15 07/09/21 18:16 DC 07/09/21 18:23 1 DROP Allergies: Allergies: Allergies Coded Allergies Type Severity Reaction Last Updated Verified Penicillins Allergy Intermediate 07/27/14 No Physical Exam: PE: Constitutional: Well developed, well nourished, no acute distress, non-toxic appearance. [] HENT: Normocephalic, atraumatic, bilateral external ears normal, oropharynx moist, no oral exudates, nose normal. [] Eyes: PERRLA, EOMI, conjunctiva normal, no discharge. Patient can see me p eripherally but when I am standing in front of her she states that she cannot see my face. [] Neck: Normal range of motion, no tenderness, supple, no stridor. [] Cardiovascular:Heart rate regular rhythm, no murmur [] Lungs & Thorax: Bilateral breath sounds clear to auscultation [] Abdomen: Bowel sounds normal, soft, no tenderness, no masses, no pulsatile masses. [] Skin: Warm, dry, no erythema, no rash. [] Back: No tenderness, no CVA tenderness. [] Extremities: No tenderness, no cyanosis, no clubbing, ROM intact, no edema. [] Neurologic: Alert and oriented X 3, normal motor function, normal sensory function, no focal deficits noted. [] Psychologic: Affect normal, judgement normal, mood normal. [] Current Patient Data: Vital Signs: Vital Signs Date Time Temp Pulse Resp B/P (MAP) Pulse Ox O2 Delivery O2 Flow Rate FiO2 07/09/21 18:13 98.7 67 20 214/102 (139) 96 Room Air 98.7 EKG: EK and read by Dr Osullivan as Sinus Rhythm with chronic T wave inversions laterally. No STEMI Radiology/Procedures: Radiology/Procedures: [] Impression: [facility] [address] [place] [address] IMAGING REPORT Signed PATIENT: LUIS JENNINGS ACCOUNT: [id number] : 1935 LOCATION: ER AGE: 85 SEX: F EXAM STATUS: REG ER ORD. PHYSICIAN: JITENDRA BERGMAN APRN REASON: RIGHT EYE VISION LOST PROCEDURE: CT HEAD WO CONTRAST CT HEAD/BRAIN WO Date: 07/09/2021 6:41 PM Clinical Indication: RIGHT EYE VISION LOST Comparison: MRI 07/03/2018. Technique: 5 mm axial tomographic images were obtained of the head without contrast. These were viewed on brain and bone windows. One or more of the f ollowing dose reduction techniques were utilized: Automated exposure control (AEC), Adjustment of mA and/or kV according to patient size, Use of iterative reconstruction technique such as ASiR, CT scan done according to ALARA and image gently/image wisely Findings: Moderate generalized cerebral and cerebellar volume loss. Moderate nonspecific periventricular hypoattenuation, most commonly seen with chronic small vessel ischemic disease. Calcified atherosclerosis of the bilateral cavernous and paraclinoid internal carotid arteries. Left thalamic and basal ganglia chronic lacunar infarcts. Tiny lipoma in the interhemispheric fissure along the anterior falx. No acute hemorrhage. The ventricles are normal in size, shape, and morphology. The otero- white matter junction is normal. The subarachnoid cisterns are patent. The visualized paranasal sinuses are normal. The visualized portions of the orbits and globes are normal. The mastoid air cells are clear. The aerial applicator pilot topogram shows no lytic lesion or fracture. Impression: No acute intracranial process. Moderate cerebral volume loss. Moderate chronic small vessel ischemic disease. Electronically signed by: Yanira Munoz MD (07/09/2021 7:23 PM) [facility] DICTATED and SIGNED BY: YANIRA MUNOZ MD DATE: 07/09/211916 Course & Med Decision Making: Course & Med Decision Making Pertinent Labs and Imaging studies reviewed. (See chart for details) See HPI. Alert and oriented x4. Ambulatory steady gait. Skin pink warm and dry. PERRLA. Patient was very hypertensive upon arrival but blood pressures gone down to 189/98. Patient is able to see me peripherally. When standing straight in front of her she can just see everything but my face. Given onset of greater than 4 hours prior to arrival of the ED patient is well out of the window for TPA. No scalp tenderness. No tenderness to the face. Can open and close mouth fully without pain. Afebrile. Continues to deny any kind of headache. Denies any type of fatigue. Eye Exam Visual accuity: Able to see me peripherally. Unable to see my face to chest area when looking at me straight ahead through right eye only. Unable to read the acuity chart through the right eye. Both eyes are 20/30. Left eye is 20/40. Eye exam: PERRL, Extraocular muscles intact. Eye movement painless. No signs of ruptured globe. Sclera clear. Red reflex present. Foreign body: No foreign bodies seen with examination or with lid flip exam. Quang-pen: N/A. Not working. Fluorescein test: No corneal abrasion. Anesthetic: Tetracaine Blood work normal. CT of head is normal. I spoken with Dr. Hopkins our ophthalmology doctor ironer. He states due to patient having given CVA in the past this could be of vascular concern with symptoms and could be a concern for stroke of the eye. He states that it would be best for the patient to be tra nsferred to a facility that can have an full roll inspector see her tonight. I called the [facility] transfer team and Dr. Salmeron at [facility] has accepted the patient. [] Galindo Disclaimer: Galindo Disclaimer: This electronic medical record was generated, in whole or in part, using a voice recognition dictation system. Departure Departure Impression: Primary Impression: Vision loss of right eye Disposition: 02 [facility] TER[facility] ([facility]) Condition: STABLE Referrals: YANIRA MARTINI MD (PCP) JITENDRA BERGMAN PRESIDENT & FOUNDER Jul 09, 2021 19:27
[2021-07-09 19:39] LABS: CALCIUM 9.3 mg/dL (8.5-10.1); CREATININE 0.8 mg/dL (0.6-1.0); GFR 67.8; POTASSIUM 4.3 mmol/L (3.5-5.1)
[2021-07-09 19:45] LABS: ALBUMIN 3.3 g/dL (3.4-5.0); TOTAL BILIRUBIN 0.2 mg/dL (0.2-1.0); TOTAL PROTEIN 6.5 g/dL (6.4-8.2)
[2021-07-09 19:48] LABS: RBC,URINE 0 /HPF (0-2)
[2021-07-09 19:49] LABS: BACTERIA,URINE FEW /HPF (0-FEW)
[2021-07-09 20:57] VITALS: BP 185/77
--- NOTE | 2021-07-10 12:30 | EKG ---
[facility] [address] [place] [address] Test Date: 2021-07-09 Test Time: 18:58:33 Pat Name: LUIS JENNINGS Department: Room: Gender: F [employer]: : 1935 Requested By: JITENDRA BERGMAN Order Number: [id number] Reading MD: Measurements Intervals [place] Rate: 61 P: -70 [place]: 96 QRS: -47 QRSD: 138 T: 142 QT: 452 QTc: 461 Interpretive Statements SUPRAVENTRICULAR RHYTHM COMPLEX(ES) WITH ABERRANT INTRAVENTRICULAR CONDUCTION ABNORMAL LEFT AXIS DEVIATION LEFT ANTERIOR FASCICULAR BLOCK RIGHT BUNDLE BRANCH BLOCK BIFASCICULAR BLOCK ABNORMAL ECG RI6.02 No previous ECG available for comparison
== END 2021-07-09 21:20 | disposition short-term general hospital (02) ==
LOC: ER 16:46
DX: H54.61 Unqualified visual loss, right eye, normal vision left eye (principal); Z20.822 Contact with and (suspected) exposure to COVID-19; K21.9 Gastro-esophageal reflux disease without esophagitis; I10 Essential (primary) hypertension; Z86.73 Personal history of transient ischemic attack (TIA), and cerebral infarction without residual deficits; Z95.0 Presence of cardiac pacemaker; Z88.0 Allergy status to penicillin
CPT/HCPCS: 36415; 70450; 80053; 81001; 84484; 85025; 85651; 86140; 86141; 87086; 87426; 93005; 99285-25